=== PATIENT | female | born 1965 | race Caucasian/White ===

== ENCOUNTER 2019-10-05 00:11 | Emergency (ER) | payer BC ==
[2019-10-05] MEDS ORDERED: ONDANSETRON 4 MG/2 ML VIAL IVP STA (00:23)
[2019-10-05] MEDS ORDERED: SODIUM CHLORIDE 0.9% 1,000 ML IV STA (00:23)
[2019-10-05] MEDS ORDERED: HYDROmorphone 1 MG/ML 1 ML SYRINGE IVP STA (00:23)
[2019-10-05 00:43] LABS: Basophils # (A) 0.1 k/uL (0-0.2); Basophils % (A) 0 %; Eosinophils # (A) 0.3 k/uL (0-0.7); Eosinophils % (A) 2 %; HCT 47.9 % (34.0-46.0); HGB 15.4 gm/dL (11.4-16.0); Lymphocytes # (A) 5.1 k/uL (1.0-4.8); Lymphocytes % (A) 38 %; MCH 29.1 pg (25.0-35.0); MCHC 32.2 g/dL (31.0-37.0); MCV 90.4 fL (80.0-100.0); Monocytes # (A) 0.7 k/uL (0-1.0); Monocytes % (A) 5 %; Neutrophils # (A) 6.8 k/uL (1.3-7.7); Neutrophils % (A) 51 %; RDW 14.5 % (11.5-15.5); WBC 13.4 k/uL (3.8-10.6)
[2019-10-05 00:52] LABS: Albumin 4.6 g/dL (3.5-5.0); Calcium 10.3 mg/dL (8.4-10.2); Potassium 4.3 mmol/L (3.5-5.1); Total Bilirubin 0.2 mg/dL (0.2-1.3); Total Protein 7.4 g/dL (6.3-8.2)
[2019-10-05] MEDS ORDERED: SODIUM CHLORIDE 0.9% 1,000 ML IV SCH (01:15)
--- NOTE | 2019-10-05 01:20 | XR ---
EXAMINATION TYPE: XR KUB DATE OF EXAM: 10/05/2019 COMPARISON: 09/16/2014 HISTORY: Abdominal pain TECHNIQUE: 2 views upright FINDINGS: There is no sign of intestinal obstruction or pneumoperitoneum. Fecal pattern is normal. Th ere are multiple surgical coils over the abdomen. There is no evidence of a mass. There are no pathol ogic calcifications over the kidneys. Lung bases are clear. Bony structures are intact. IMPRESSION: Nonacute abdomen. No adverse change compared to old exam.
--- NOTE | 2019-10-05 01:23 | ED ---
Abdominal Pain HPI - General Chief Complaint: Abdominal Pain Stated Complaint: Abdominal Hernia Time Seen by Provider: 10/05/19 00:23 Source: patient Mode of arrival: wheelchair Limitations: no limitations - History of Present Illness Initial Comments: Hannah is a 54-year-old female with a history of extensive abdominal surgeries in the past including 71 for hernia repairs most recently was in 2014. Patient has a known incisional hernia which on previous imaging his contained: She's never had obstruction from this. Patient presents the ER today and acute abdominal pain with a firm bulge from her hernia vomiting and concern that she may have an obstruction. She was in her usual state of health throughout the day yesterday, this afternoon she developed pain in her abdomen noticed her hernia became very firm she's been vomiting unable tolerate any by mouth intake. This is never happened before with this hernia. - Related Data Home Medications Medication Instructions Recorded Confirmed Fluticasone Nasal Manson [Flonase 2 spray EA NOSTRIL DAILY 03/18/15 02/20/16 Nasal Manson] Latanoprost 1 drop LEFT EYE HS 03/18/15 02/20/16 Previous Rx's Medication Instructions Recorded Atorvastatin [Lipitor] 10 mg PO HS #30 tab 03/19/15 Dicyclomine HCl [Bentyl] 20 mg PO QID PRN #15 tab 02/20/16 Allergies Allergy/AdvReac Type Severity Reaction Status Date / Time erythromycin base Allergy Unknown Verified 10/05/19 00:20 [Erythromycin Base] iodine Allergy Unknown Verified 10/05/19 00:20 latex Allergy Unknown Verified 10/05/19 00:20 ALL NARCOTICS Allergy Unknown Uncoded 10/05/19 00:20 Review of Systems ROS Statement: Those systems with pertinent positive or pertinent negative responses have been documented in the HPI. ROS Other: All systems not noted in ROS Statement are negative. Past Medical History Past Medical History: Eye Disorder Additional Past Medical History / Comment(s): pressure in Left eye History of Any Multi-Drug Resistant Organisms: None Reported Past Surgical History: Appendectomy, Section, Hernia Repair, Tonsillectomy Additional Past Surgical History / Comment(s): 8 HERNIA SURGERY, NOSE SURGERY, ovary removed, Donated Left Kidney Past Psychological History: No Psychological Hx Reported Smoking Status: Former smoker Past Alcohol Use History: Rare Past Drug Use History: None Reported - Past Family History Mother Family Medical History: Myocardial Infarction ([place]) Father Family Medical History: Myocardial Infarction ([place]) General Exam - General Exam Comments Initial Comments: Physical Exam GENERAL: In acute distress, actively vomiting HENT: Normocephalic, Atraumatic. EYES: PERRL, EOMI PULMONARY: Unlabored respirations. No audible rales rhonchi or wheezing was noted. CARDIOVASCULAR: There is a regular rate and rhythm without any murmurs gallops or rubs. ABDOMEN: Pervious midline incision, palpable non-reducible hernia, no skin color changes noted Abdomen distended, tender, tympanic SKIN: Skin is clear with no lesions or rashes and otherwise unremarkable. : Deferred NEUROLOGIC: Patient is alert and oriented x3. Moving all extremities spontaneously MUSCULOSKELETAL: Normal extremities with adequate strength and full range of motion. No lower extremity swelling or edema. No calf tenderness. PSYCHIATRIC: Normal psychiatric evaluation. Limitations: no limitations Course Vital Signs 10/05/19 10/05/19 10/05/19 00:16 01:33 03:16 Temperature 97.5 F L 98.7 F Pulse Rate 102 H 94 78 Respiratory 20 20 18 Rate Blood Pressure 180/88 177/103 141/84 O2 Sat by Pulse 99 97 98 Oximetry Medical Decision Making - Medical Decision Making Patient was seen and evaluated immediately upon arrival to the emergency department patient was noted to be in acute distress Labs and imaging were ordered Patient care was discussed with surgeon sheet metal contractor Dr. alvarado who requests imaging and labs for further evaluation of likely incarcerated ventral hernia Labs with leukocytosis, mild lactic acidosis Patient with minimal improvement in pain with Dilaudid, however vomiting stopped after antiemetics Computed tomography scan confirms a very large ventral hernia This again was discussed with Dr. alvarado who is concerned that due to the patient's very complicated surgical history will require multiple surgeries, recommends transfer to tertiary care center Patient care was discussed with surgeon at [facility] who agrees this patient will likely require multiple surgeries possible abdominal wall reconstruction recommends transfer back to [facility] considering the patient is not profoundly acidotic only has a lactic of 2.6 does believe the patient is stable for transfer to [facility]. States that a few of them feels the patient needs emergent surgery the patient can be transferred to [facility] however the plan would be to open the patient's abdomen to resolve the obstruction and then transfer to [facility] likely with an open abdomen. Patient care was discussed with surgeon sheet metal contractor Dr. Lucio [facility]. CT images patient's history and my discussion with surgeons locally were discussed. At this time she does feel the patient is stable for transfer to their facility for plan or surgery. - Lab Data Result diagrams: 10/05/19 00:32 10/05/19 00:32 Lab Results 10/05/19 10/05/19 10/05/19 Range/Units 00:32 00:32 00:32 WBC 13.4 H (3.8-10.6) k/uL RBC 5.30 (3.80-5.40) m/uL Hgb 15.4 (11.4-16.0) gm/dL Hct 47.9 H (34.0-46.0) % MCV 90.4 (80.0-100.0) fL MCH 29.1 (25.0-35.0) pg MCHC 32.2 (31.0-37.0) g/dL RDW 14.5 (11.5-15.5) % Plt Count (150-450) k/uL Neutrophils % 51 % Lymphocytes % 38 % Monocytes % 5 % Eosinophils % 2 % Basophils % 0 % Neutrophils # 6.8 (1.3-7.7) k/uL Lymphocytes # 5.1 H (1.0-4.8) k/uL Monocytes # 0.7 (0-1.0) k/uL Eosinophils # 0.3 (0-0.7) k/uL Basophils # 0.1 (0-0.2) k/uL Manual Slide Review Performed Sodium 139 (137-145) mmol/L Potassium 4.3 (3.5-5.1) mmol/L Chloride 104 (98-107) mmol/L Carbon Dioxide 23 (22-30) mmol/L Anion Gap 12 mmol/L BUN 19 H (7-17) mg/dL Creatinine 0.90 (0.52-1.04) mg/dL Est GFR (CKD-EPI)AfAm 85 (>60 ml/min/1.73 sqM) Est GFR (CKD-EPI)NonAf 74 (>60 ml/min/1.73 sqM) Glucose 158 H (74-99) mg/dL Lactic Ac Sepsis Rflx Plasma Lactic Acid Neymar 2.6 H* (0.7-2.0) mmol/L Calcium 10.3 H (8.4-10.2) mg/dL Total Bilirubin 0.2 (0.2-1.3) mg/dL AST 42 H (14-36) U/L ALT 55 H (4-34) U/L Alkaline Phosphatase 115 (38-126) U/L Total Protein 7.4 (6.3-8.2) g/dL Albumin 4.6 (3.5-5.0) g/dL Amylase 48 (30-110) U/L Lipase 341 H (23-300) U/L Blood Type Blood Type Recheck Bld Type Recheck Status Antibody Screen Spec Expiration Date 10/05/19 10/05/19 Range/Units 00:32 01:11 WBC (3.8-10.6) k/uL RBC (3.80-5.40) m/uL Hgb (11.4-16.0) gm/dL Hct (34.0-46.0) % MCV (80.0-100.0) fL MCH (25.0-35.0) pg MCHC (31.0-37.0) g/dL RDW (11.5-15.5) % Plt Count (150-450) k/uL Neutrophils % % Lymphocytes % % Monocytes % % Eosinophils % % Basophils % % Neutrophils # (1.3-7.7) k/uL Lymphocytes # (1.0-4.8) k/uL Monocytes # (0-1.0) k/uL Eosinophils # (0-0.7) k/uL Basophils # (0-0.2) k/uL Manual Slide Review Sodium (137-145) mmol/L Potassium (3.5-5.1) mmol/L Chloride (98-107) mmol/L Carbon Dioxide (22-30) mmol/L Anion Gap mmol/L BUN (7-17) mg/dL Creatinine (0.52-1.04) mg/dL Est GFR (CKD-EPI)AfAm (>60 ml/min/1.73 sqM) Est GFR (CKD-EPI)NonAf (>60 ml/min/1.73 sqM) Glucose (74-99) mg/dL Lactic Ac Sepsis Rflx Y Plasma Lactic Acid Neymar (0.7-2.0) mmol/L Calcium (8.4-10.2) mg/dL Total Bilirubin (0.2-1.3) mg/dL AST (14-36) U/L ALT (4-34) U/L Alkaline Phosphatase (38-126) U/L Total Protein (6.3-8.2) g/dL Albumin (3.5-5.0) g/dL Amylase (30-110) U/L Lipase (23-300) U/L Blood Type O Positive Blood Type Recheck O Pos Bld Type Recheck Status No Antibody Screen NEGATIVE Spec Expiration Date 10/08/20192331 Critical Care Time Critical Care Time: Yes Total Critical Care Time: 45 Critical Care Time: Critical Care Time Critical care time was exclusive of separately billable procedures and treating other patients and teaching time. Critical care was necessary to treat or prevent imminent or life-threatening deterioration. Given the critical condition in which the patient arrived, the patient was immediately assessed by myself and the nurse, and cardiac monitoring initiated due to the potential for rapid decompensation of the patient's clinical condition. During the course of the patients stay, I spent a considerable amount of time at the bedside performing serial re-evaluations of the patient's hemodynamic and clinical status because of the recognized potential threat to life or limb in this condition. I then had a chance to review not only all of the available current laboratory and radiographic studies obtained today, but I also reviewed old records available to me at the time. Additionally, any ancillary information available including nurse wound care records were reviewed. Seque ntial vital signs were obtained. Disposition Clinical Impression: Incarcerated hernia of abdominal cavity Disposition: OTHER INSTITUTION NOT DEFINED Condition: Serious Referrals: Cedric Domínguez MD [Primary Care Provider] - 1-2 days - Out of Hospital Transfer - Req. Specs Out of Hospital Transfer - Requested Specifics: Other Emergency Center ([facility])
[2019-10-05] MEDS ORDERED: methylPREDNISolone SOD SUCCI 125 MG/2 ML VIAL IV STA (01:24)
[2019-10-05] MEDS ORDERED: diphenhydrAMINE 50 MG/ML 1 ML VIAL IVP STA (01:24)
[2019-10-05] MEDS ORDERED: FAMOTIDINE 20 MG/2 ML VIAL IV STA (01:24)
--- NOTE | 2019-10-05 02:16 | CT ---
EXAMINATION TYPE: CT abdomen pelvis w con DATE OF EXAM: 10/05/2019 COMPARISON: 02/20/2016 HISTORY: hernia CT DLP: 2528.4 mGycm Automated exposure control for dose reduction was used. CONTRAST: Performed with IV Contrast, patient injected with 80 mL of Isovue 300. Multiple axial sections were obtained from the diaphragm to the floor the pelvis with IV contrast. There is mild subsegmental atelectasis at the lung bases. There is no pericardial effusion. There is no pleural effusion. There is some fatty infiltration of the liver. Bile ducts are not dilated. There are clips from cholecystectomy. Spleen stomach pancreas appear normal. The bile ducts are not dilate d. There is moderate-sized ventral hernia in the right mid abdomen that contains transverse colon with s ome incarceration. There is a large midline ventral hernia with incarceration that contains multiple loops of small bowel. The bladder distends smoothly. Uterus is anteverted. There is no inguinal herni a. There is no free fluid in the pelvis. Left kidney is absent. Right kidneys show satisfactory contr ast opacification with no hydronephrosis. Right ureter is not dilated.Lumbar vertebra have normal ali gnment. Posterior elements are intact. Bony pelvis is intact. IMPRESSION: There are 2 anterior abdominal wall incarcerated ventral hernias. The small bowel is somewhat dilated within the larger inferior hernia and measures up to 3 cm. The small bowel is dilated up to 3 cm wit hin the inferior hernia and there is probably a partial mechanical obstruction. The more inferior her khalif significantly increased in size compared to old CT scan. There is fatty infiltration of the liver . There is some subsegmental atelectasis at the lung bases that is new compared to old exam.
[2019-10-05] MEDS ORDERED: PIPERACILLIN-TAZOBACTAM 3.375 GM in SODIUM CHLORIDE 0.9% 100 ML IVPB STA (02:40)
[2019-10-05] MEDS ORDERED: MORPHINE SULFATE 4 MG/ML SYRINGE IVP STA (02:40)
[2019-10-05 03:17] VITALS: BP 141/84; PULSE 78; RESP 18; TEMP 98.7
== END 2019-10-05 03:23 | disposition other institution (70) ==
LOC: EC 00:11
DX: K43.6 Other and unspecified ventral hernia with obstruction, without gangrene (principal); D72.829 Elevated white blood cell count, unspecified; E87.2 Acidosis; Z79.51 Long term (current) use of inhaled steroids; Z88.1 Allergy status to other antibiotic agents; Z91.040 Latex allergy status; Z91.048 Other nonmedicinal substance allergy status; Z88.5 Allergy status to narcotic agent; Z90.89 Acquired absence of other organs; Z87.891 Personal history of nicotine dependence
CPT/HCPCS: 99291; 96374; 96375 ×6; 96361 ×3; 36415; 86900; 86901; 80053; 82150; 83605; 83690; 85025; 86850; 74018; 74177; J2543; J2270; J1200; J2930; J2405; J1170; Q9967

== ENCOUNTER → 2019-11-06 | Outpatient (CLI) | payer BC ==
--- NOTE | 2019-11-06 10:09 | US ---
EXAMINATION TYPE: US liver DATE OF EXAM: 11/06/2019 COMPARISON: CT October 05, 2019, US 2014 CLINICAL HISTORY: R94.5 ABN LIVER FUNCTIONS,R68.89 ABN CLINICAL FINDINGS. Abnormal liver function trinity ts, patient states she has a 0.8cm liver lesion seen at [facility], not seen on recent CT here. EXAM MEASUREMENTS: Liver Length: 20.0 cm Gallbladder Wall: surgically absent CBD: 0.5 cm Right Kidney: 12.4 x 5.5 x 6.2 cm Pancreas: visualized portions wnl, limited by overlying midline bowel gas Liver: enlarged, heterogeneous, increased echogenicity, lesion not seen on today's exam. Gallbladder: surgically absent Evidence for sonographic Moran's sign: no CBD: visualized portions wnl, limited by overlying bowel gas Right Kidney: wnl Persistent hepatomegaly and marked fatty infiltration of liver. Suboptimal evaluation for masses due to above. No suspicious mass identified on images saved. Gallbladder noted surgically absent. IMPRESSION: Hepatomegaly with marked fatty infiltration of liver redemonstrated. In review of recent CT patient has a 9 to 10 mm hyperdense lesion posterior segment right hepatic lobe image 27 series 20 [address] clearly identified on CT studies from 2010, 2014, and 2016. Follow-up liver protocol contrast-e nhanced CT in 6-12 months time is advised to reassess.
== END | disposition home or self-care (01) ==
LOC: RADUSWWP 09:25
PROVIDERS: ATTEND Internal Medicine
DX: K76.0 Fatty (change of) liver, not elsewhere classified (principal); R16.0 Hepatomegaly, not elsewhere classified; Z91.048 Other nonmedicinal substance allergy status
CPT/HCPCS: 76705

== ENCOUNTER → 2019-12-09 | Outpatient (CLI) | payer BC ==
--- NOTE | 2019-12-09 18:18 | XR ---
EXAMINATION TYPE: XR shoulder complete LT DATE OF EXAM: 12/09/2019 CLINICAL HISTORY: Pain from fall 2 weeks ago TECHNIQUE: Three views of the left shoulder are obtained. COMPARISON: None. FINDINGS: There is no acute fracture/dislocation evident in the left shoulder. The acromioclavicula r and glenohumeral joint spaces appear within normal limits. The visualized ribs are intact and unre markable. IMPRESSION: There is no acute fracture or dislocation in the left shoulder.
== END | disposition home or self-care (01) ==
LOC: RADXRMAIN 14:23
PROVIDERS: ATTEND Nurse Practitioner Adult Health
DX: M25.512 Pain in left shoulder (principal)

== ENCOUNTER → 2020-01-29 | Outpatient (CLI) | payer BC | END | disposition home or self-care (01) | LOC: RADFLMAIN 12:52 | PROVIDERS: ATTEND Nurse Practitioner Adult Health | DX: Z53.9 Procedure and treatment not carried out, unspecified reason (principal) ==

== ENCOUNTER → 2020-01-30 | Outpatient (CLI) | payer BC ==
--- NOTE | 2020-01-30 16:41 | FL ---
EXAMINATION TYPE: FL arthrogram shoulder LT fluoroscopic-guided arthrogram injection. DATE OF EXAM: 01/30/2020 HISTORY: Left shoulder pain and limited movement PROCEDURES: 1. Left shoulder fluoroscopy. 2. Left shoulder arthrogram. Patient has history of iodine allergy and 13 hour complete prep was performed prior to procedure. TECHNIQUE: The procedure, risks, and alternatives, were discussed with the patient. Informed consent was obtaine d. Imaging guidance was utilized to select the precise skin entry point just prior to the procedure. The left shoulder was prepped and draped in the usual sterile fashion and local 1% lidocaine anesthes ia was instilled. Under fluoroscopic guidance, a 22 gauge spinal needle was introduced into the left glenohumeral joint. Appropriate needle tip position was confirmed after a small amount of contrast i njection. Approximately 10 ml of a mixture of Isovue iodinated contrast and Gadavist gadolinium was injected in to the glenohumeral joint. The needle was then removed. The patient tolerated the procedure well. There was no immediate complication. After the procedure, the patient's condition was unchanged. No estimated blood loss. Total fluoroscopy time 54 seconds IMPRESSION: Technically successful left shoulder arthrogram injection for MRI. No immediate complication.
--- NOTE | 2020-02-01 18:22 | MR ---
EXAMINATION TYPE: MR shoulder LT w con DATE OF EXAM: 01/30/2020 COMPARISON: None HISTORY: L shoulder pain Technique: Multiplanar, multiecho imaging on a 3.0 Ana magnet is performed through the shoulder. Ex amination is post arthrogram. Findings: Long head of the biceps tendon is within the bicipital groove. Fluid cannot be well assessed on this examination given post arthrogram status. Glenoid labrum as vi sualized appears intact. Rotator cuff tendons are evaluated. There is fluid within the subacromial bursa and within the subde ltoid bursa. Large fluid collection is anterior to the humeral head. There appears to be a perforati on at the distal supraspinatus tendon. This is along the anterior portion near the communication with the subscapularis tendon. Muscle signal the subscapularis and supraspinatus as well as infraspinatus and teres minor appear normal. No fatty infiltration is evident. The acromioclavicular junction is hypertrophied which can contribute to impingement syndrome. IMPRESSIONS: 1. Findings suggestive for a perforation near the confluence of the subscapularis and supraspinatus t endon anteriorly.
== END | disposition home or self-care (01) ==
LOC: RADFLMAIN 13:02
PROVIDERS: ATTEND Nurse Practitioner Adult Health
DX: M25.512 Pain in left shoulder (principal)
CPT/HCPCS: 23350; 73040; 73222; J2001; A9585

== ENCOUNTER → 2020-03-10 | Outpatient (CLI) | payer BC ==
--- NOTE | 2020-03-10 21:42 | CT ---
EXAMINATION TYPE: CT abdomen wo con DATE OF EXAM: 03/10/2020 HISTORY: Abdominal pain in particular epigastric pain, vomiting, diarrhea x3 wks. hx hernia, bowel ob struction, agnes, appy CT DLP: 930.10 mGycm. Automated Exposure Control for Dose Reduction was Utilized. TECHNIQUE: CT scan of the abdomen is performed without oral or IV contrast. COMPARISON: Most recent CT October 05, 2019 FINDINGS: Within the limitations of a non-contrast study, the following observations are made. LUNG BASES: No significant abnormality is appreciated. LIVER/GB: Persistent mild hepatomegaly with marked fatty infiltration of liver. Cholecystectomy clips are redemonstrated. PANCREAS: No significant abnormality is seen. SPLEEN: Stable small splenule posterior inferior aspect axial image 37. ADRENALS: No significant abnormality is seen. KIDNEYS: Left kidney is not seen similar to prior. 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 There is contrast debris level in stomach with additional fluid overlying contrast and nondependent air. Mi ld to moderate gastric prominence. Correlate for possible underlying gastroparesis. Nondistended duod enal sweep. Fourth portion of duodenum does not ascend to the level of the gastric antrum. Slightly p rominent jejunal loops in the anterior upper to mid abdomen with [id number] concentric wall thi ckening. Fecal material seen in nondistended colon. LYMPH NODES: No new greater than 1cm abdominal lymph nodes are appreciated. OSSEOUS STRUCTURES: Slight scoliotic curvature on the coronal images redemonstrated. Facet arthropath y lower lumbar levels. OTHER: Persistent coils from prior ventral wall hernia repair surgery. Interval improvement in hernia defect with minimal overlying vertical skin scar. There is persistent eventration anterior to mid ab domen with small right-sided hernia defect axial image 47-containing portion of bowel. No bowel obstr uction. Eventration and hernia defect more prominent with increased inferior extension along the inci cata noted. IMPRESSION: Eventration and recurrent incisional hernia despite interval surgery containing nonobstru ctive bowel loops..
== END | disposition home or self-care (01) ==
LOC: RADCTMAIN 18:12
PROVIDERS: ATTEND Nurse Practitioner Adult Health
DX: K43.2 Incisional hernia without obstruction or gangrene (principal); Z91.048 Other nonmedicinal substance allergy status
CPT/HCPCS: 74150

== ENCOUNTER → 2020-03-16 | Outpatient (CLI) | payer BC ==
[2020-03-16 10:43] LABS: Basophils # (A) 0.1 k/uL (0-0.2); Basophils % (A) 1 %; Eosinophils # (A) 0.2 k/uL (0-0.7); Eosinophils % (A) 3 %; HCT 45.2 % (34.0-46.0); HGB 14.3 gm/dL (11.4-16.0); Lymphocytes # (A) 2.6 k/uL (1.0-4.8); Lymphocytes % (A) 29 %; MCH 27.2 pg (25.0-35.0); MCHC 31.7 g/dL (31.0-37.0); MCV 85.9 fL (80.0-100.0); Mean Platelet Volume 9.6; Monocytes % (A) 12 %; Neutrophils # (A) 4.8 k/uL (1.3-7.7); Neutrophils % (A) 54 %; RBC 5.26 m/uL (3.80-5.40); RDW 14.6 % (11.5-15.5); WBC 8.9 k/uL (3.8-10.6)
[2020-03-16 10:46] LABS: Potassium 4.4 mmol/L (3.5-5.1)
== END | disposition home or self-care (01) ==
LOC: LABPAT 08:48
PROVIDERS: ATTEND Orthopaedic Surgery
DX: Z01.812 Encounter for preprocedural laboratory examination (principal); M75.42 Impingement syndrome of left shoulder
CPT/HCPCS: 80048; 85025; 93005

== ENCOUNTER → 2020-03-16 | Outpatient (CLI) | payer BC ==
[2020-03-16 17:15] LABS: Hemoglobin A1C 7.6 % (4.0-6.0)
== END | disposition home or self-care (01) ==
LOC: LABWHC1 08:50
PROVIDERS: ATTEND Nurse Practitioner Adult Health
DX: E11.8 Type 2 diabetes mellitus with unspecified complications (principal)
CPT/HCPCS: 36415; 83036

== ENCOUNTER 2020-04-15 05:52 | Day surgery (SDC) | payer BC ==
[2020-04-07 12:58] VITALS: BMI 34.0
--- NOTE | 2020-04-14 18:28 | HP ---
HISTORY AND PHYSICAL DATE OF SURGERY: 04/15/2020 Hannah Rader is a 54-year-old patient seen with progressive left shoulder pain. We discussed options for treatment. She elected to proceed with arthroscopy. Consent regarding the procedure was obtained. PAST MEDICAL HISTORY: Hypertension, mni-tqznhne-ynlzgrlgh diabetes, asthma. PAST SURGICAL HISTORY: Appendectomy, section, cholecystectomy, herniorrhaphy, tonsillectomy. DAILY MEDICATIONS: Cymbalta, Flonase, losartan, Singulair. ALLERGIES: NARCOTICS and ERYTHROMYCIN. SOCIAL HISTORY: She denies tobacco use. PHYSICAL EVALUATION OF THE LEFT SHOULDER: Flexion 90 degrees, abduction 60 degrees. External rotation is 25 degrees with some weakness. There is tenderness along the anterolateral acromion and rotator cuff insertion site. Impingement is positive at 70 degrees. Drop-arm sign is positive. Distal neurovascular exam is intact. RADIOGRAPHS: Left shoulder radiographs revealed a type 2 anterior acromion as well as evidence for acromioclavicular joint osteoarthritis. An MRI of the left shoulder revealed a rotator cuff tear, acromioclavicular joint osteoarthritis and impingement. IMPRESSION: 1. Left shoulder impingement with rotator cuff tear. 2. Left shoulder acromioclavicular joint osteoarthritis. 3. Hypertension. PLAN: Left shoulder arthroscopy, subacromial decompression, arthroscopic rotator cuff repair, Shaunna procedure and debridement. MMODL / IJN: [id number] /
[2020-04-15] MEDS ORDERED: MIDAZOLAM 2 MG/2 ML VIAL IV PRN (06:02)
[2020-04-15] MEDS ORDERED: DEXAMETHASONE SOD PHOSPHATE 4 MG/ML 1 ML VIAL IV ONE (06:02)
[2020-04-15] MEDS ORDERED: LIDOCAINE 1% (10MG/ML) FOR IV START INTRADERMA PRN (06:02)
[2020-04-15] MEDS ORDERED: ONDANSETRON 4 MG/2 ML VIAL IVP ONE (06:02)
[2020-04-15] MEDS ORDERED: LACTATED RINGERS 1,000 ML IV SCH (06:02)
[2020-04-15] MEDS ORDERED: HYDROmorphone 0.5 MG/0.5 ML SYRINGE IVP PRN (07:00)
[2020-04-15] MEDS ORDERED: MIDAZOLAM 2 MG/2 ML VIAL IV ONE (07:02)
[2020-04-15 07:20] LABS: Glucose,Whole Blood 113 mg/dL (75-99)
[2020-04-15] MEDS ORDERED: LIDOCAINE 1% INJ 10MG/ML (20 ML MDV) ONE (07:22)
[2020-04-15] MEDS ORDERED: PHENYLEPHRINE 10 MG/ML VIAL ONE (07:22)
[2020-04-15] MEDS ORDERED: DEXAMETHASONE SOD PHOSPHATE 4 MG/ML 1 ML VIAL ONE (07:22)
[2020-04-15] MEDS ORDERED: PROPOFOL 10 MG/ML 20 ML VIAL IV ONE (07:22)
[2020-04-15] MEDS ORDERED: SUCCINYLCHOLINE CHLORIDE 100 MG/5 ML SYR IV ONE (07:22)
[2020-04-15] MEDS ORDERED: fentaNYL (PF) 50 MCG/ML 2 ML AMP ONE (07:22)
[2020-04-15] MEDS ORDERED: ROPIVACAINE 5 MG/ML 30 ML VIAL ONE (07:22)
--- NOTE | 2020-04-15 07:55 | P.ANPRN ---
Procedure Note - Anesthesia - Nerve Block Performed Left Interscalene Single Time Out Performed: Yes Date of Procedure: 04/15/20 Procedure Start Time: 07:02 Procedure Stop Time: 07:10 Location of Patient: PreOp Indication: Acute Post-Operative Pain, Requested by Surgeon Sedation Type: Sedate with meaningful contact maintained Preparation: Sterile Prep, Sterile Dressing Position: Sitting Catheter: None Needle Types: Facet Needle Gauge: 20, 21 Ultrasound used to visualize needle placement: Yes Ultrasound used to observe medication spread: Yes Injectate: 0.5% Ropivacaine (see comment for volume) (20 ml + decadron 4 mg) Blood Aspirated: No Pain Paresthesia on Injection Noted: No Resistance on Injection: Normal Image Stored and Saved: Yes Events: Uneventful and Well Tolerated
[2020-04-15] MEDS ORDERED: LACTATED RINGERS 1,000 ML IV ONE (08:21)
--- NOTE | 2020-04-15 09:00 | P.OP ---
Date of Procedure: 04/15/20 Preoperative Diagnosis: Left shoulder impingement Postoperative Diagnosis: 1. Left shoulder rotator cuff tear 2. Left shoulder impingement 3. Left shoulder acromioclavicular joint osteoarthritis 4. Left shoulder partial long head biceps tendon tear Procedure(s) Performed: 1. Left shoulder arthroscopic rotator cuff repair 2. Left shoulder arthroscopic subacromial decompression 3. Left shoulder arthroscopic Shaunna procedure 4. Left shoulder arthroscopic biceps tenotomy Implants: 25.5 Arthrex swivel lock anchors Anesthesia: GETA, regional (Interscalene block) Surgeon: Pavel Palmer Crm Coordinator #1: Peter Ellington Estimated Blood Loss (ml): 7 Pathology: none sent Condition: stable Disposition: PACU Indications for Procedure: 54-year-old patient seen with progressive left shoulder pain. After treatment options were discussed, she elected to proceed with arthroscopy. Operative Findings: See description of procedure Description of Procedure: Patient underwent an interscalene block by department of anesthesia. The patient was then taken to the operative suite. The patient underwent a general anesthetic by the department of anesthesia. The patient was placed into a lateral position and secured. There was appropriate padding of the bony prominence. Left shoulder was then prepped and draped in normal sterile orthopedic fashion. We placed the extremity in 10 pounds of longitudinal traction. A posterior incision was now made for a posterior working portal site. The trocar and cannula were inserted into the glenohumeral joint. Arthroscopy was initiated. Spinal needle was now inserted anteriorly, to ascertain the anterior working portal site. An incision was now made in that area, a trocar was inserted followed by a probe. There was some partial tearing and hyperemia long head biceps tendon. There were grade 1 chondromalacia changes involving the humeral head. The labrum was stable. I could visualize a rotator cuff tear from the glenohumeral joint. I performed an arthroscopic biceps tenotomy. I again probe the labrum and it was found to be stable. At this point instruments removed from glenohumeral joint. Utilizing the posterior working portal site, the trocar and cannula were inserted into the subacromial space. Arthroscopy initiated. I made an incision 2 fingerbreadths lateral to the acromion. I introduced my trocar followed by my ArthroCare ablator. I now began ablating thick subacromial bursal tissue, which exposed the undersurface of the anterior acromion. There was diminished subacromial space. There was a very prominent anterior acromion. A motorized bur was introduced and a subacromial decompression was performed. I also excised some osteophytes off the inferior aspect of the distal clavicle. The AC joint was visualized and noted to be fairly arthritic. The motorized bur was introduced in the anterior portal site and a Shaunna procedure was performed without difficulty, decompressing the AC joint nicely. I turned my attention to the rotator cuff. There was a 1.52 centimeter tear along the anterior aspect of the distal supraspinatus. I debrided the margins getting down to stable tendon tissue. I abraded the footprint with a motorized bur. I passed 4 everted mattress sutures through good bites of rotator cuff tendon. I now punched 2 holes in the footprint area for insertion of anchors. The 4 anterior suture limbs were passed through the eyelet of a 5.5 Arthrex swivel lock anchor. The eyelet was placed into the pre-punched hole. The sutures were tensioned by Ricardo ZHOU Whipple the anchor position and Ricardo ZHOU deployed the ankle with good fixation noted. The same was conducted for the 4 hand straightener suture limbs. All residual suture limbs were now clipped. We had good compression of the tendon along the entire footprint. I injected 1 mL Renyte intra-articular. Instruments now removed from the portal sites. All portal sites were approximated with nylon suture. Sterile dressings were applied followed by a shoulder sling. Peter ZHOU assisted in this complex case. The patient was awakened, transferred to a bed, and taken to recovery in stable condition.
[2020-04-15 09:03] VITALS: TEMP 97.4
[2020-04-15 09:14] VITALS: RESP 16
[2020-04-15 09:58] VITALS: BP 113/72; PULSE 80
== END 2020-04-15 10:56 | disposition home or self-care (01) ==
LOC: OR 05:52
PROVIDERS: ATTEND Orthopaedic Surgery
DX: M75.102 Unspecified rotator cuff tear or rupture of left shoulder, not specified as traumatic (principal); M19.012 Primary osteoarthritis, left shoulder; S46.112A Strain of muscle, fascia and tendon of long head of biceps, left arm, initial encounter; X58.XXXA Exposure to other specified factors, initial encounter; M25.712 Osteophyte, left shoulder; M94.212 Chondromalacia, left shoulder; I10 Essential (primary) hypertension; E11.9 Type 2 diabetes mellitus without complications; J45.909 Unspecified asthma, uncomplicated; Z90.49 Acquired absence of other specified parts of digestive tract; Z98.890 Other specified postprocedural states; Z98.891 History of uterine scar from previous surgery; Z90.89 Acquired absence of other organs; Z79.1 Long term (current) use of non-steroidal anti-inflammatories (NSAID); Z79.899 Other long term (current) drug therapy; Z88.1 Allergy status to other antibiotic agents; Z88.5 Allergy status to narcotic agent
CPT/HCPCS: 29826; 29827; 29824; 64415; 76942; C1713; Q4212; J2250; J1100; J2370; J0690; J2405; J2001; J3010; J2795; J0330; J2704; 64448

== ENCOUNTER 2020-07-08 17:44 | Emergency (ER) | payer BC ==
[2020-07-08] MEDS ORDERED: ONDANSETRON 4 MG/2 ML VIAL IVP STA (19:19)
[2020-07-08] MEDS ORDERED: SODIUM CHLORIDE 0.9% 1,000 ML IV STA (19:19)
[2020-07-08] MEDS ORDERED: FAMOTIDINE 20 MG/2 ML VIAL IV STA (19:20)
[2020-07-08 19:34] LABS: Basophils % (A) 0 %; Eosinophils % (A) 0 %; HGB 15.9 gm/dL (11.4-16.0); Lymphocytes # (A) 1.3 k/uL (1.0-4.8); Lymphocytes % (A) 23 %; MCH 28.2 pg (25.0-35.0); MCHC 33.8 g/dL (31.0-37.0); MCV 83.3 fL (80.0-100.0); Mean Platelet Volume 10.9; Monocytes # (A) 0.4 k/uL (0-1.0); Monocytes % (A) 6 %; Neutrophils % (A) 69 %; Platelet Count 135 k/uL (150-450); RBC 5.64 m/uL (3.80-5.40); RDW 13.5 % (11.5-15.5); WBC 5.7 k/uL (3.8-10.6)
--- NOTE | 2020-07-08 19:50 | ED ---
Nausea/Vomiting/Diarrhea HPI - General Chief complaint: Nausea/Vomiting/Diarrhea Stated complaint: dehydration Time Seen by Provider: 07/08/20 18:58 Source: patient Mode of arrival: ambulatory Limitations: no limitations - History of Present Illness Initial comments: 55-year-old female patient presents to the emergency department today for evaluation of nausea, vomiting, diarrhea. States symptoms started 2 days ago. States she does get short of breath when going upstairs. Denies any cough or congestion. Denies loss of taste or smell. Denies any rash. Denies any known fever or chills. States that several coworkers out sick with COVID-19. She was tested yesterday but does not have results yet. Denies use of any medications for her symptoms. Patient denies any recent rash, chest pain, abdominal pain, back pain, numbness, tingling, dizziness, weakness, hematuria, dysuria, urinary urgency, urinary frequency, headache, visual changes, or any other complaints. - Related Data Home Medications Medication Instructions Recorded Confirmed Fluticasone Nasal [place] [Flonase 1 spray EA NOSTRIL DAILY 03/18/15 04/15/20 Nasal [place]] Albuterol Inhaler [Ventolin Hfa 1 puff INHALATION DIRECTED PRN 04/07/20 04/15/20 Inhaler] Cholecalciferol [Vitamin D3 (25 3,000 unit PO DAILY 04/07/20 04/15/20 Mcg = 1000 Iu)] Elderberry (Unknown Dose) 1 tab PO DAILY 04/07/20 04/15/20 Folic Acid (Unknown Dose) 1 tab PO DAILY 04/07/20 04/15/20 Loratadine-Pseudoeph 10-240 mg 1 tab PO DAILY 04/07/20 04/15/20 [Claritin-D 24 Hour] Losartan (Unknown Dose) 1 tab PO DAILY 04/07/20 04/15/20 Melatonin 5 mg PO HS PRN 04/07/20 04/15/20 Metoclopramide [Reglan] 5 mg PO QID 04/07/20 04/15/20 Montelukast (Unknown Dose) 1 tab PO HS 04/07/20 04/15/20 Multivit-Min/FA/Lycopen/Lutein 1 each PO DAILY 04/07/20 04/15/20 [Centrum Silver Tablet] Pantoprazole [Protonix] 40 mg PO DAILY PRN 04/07/20 04/15/20 diphenhydrAMINE [Benadryl] 25 mg PO HS PRN 04/07/20 04/15/20 metFORMIN HCL [Glucophage] 500 mg PO DAILY 04/07/20 04/15/20 Previous Rx's Medication Instructions Recorded Hydrocodone/Acetaminophen [[place] 1 each PO Q6HR PRN #28 tab 04/15/20 5-325] Ondansetron [Zofran ODT] 4 mg PO Q8HR PRN #20 tab 07/08/20 Allergies Allergy/AdvReac Type Severity Reaction Status Date / Time iodine Allergy Unknown Rash/Hives Verified 07/08/20 17:50 latex Allergy Unknown Rash/Hives Verified 07/08/20 17:50 shellfish derived [Shellfish] Allergy Unknown Rash/Hives Verified 07/08/20 17:50 erythromycin base Allergy Abdominal Verified 07/08/20 17:50 [Erythromycin Base] Pain, Nausea ALL NARCOTICS AdvReac Severe Severe Uncoded 07/08/20 17:50 Migraines that last for weeks. Review of Systems ROS Statement: Those systems with pertinent positive or pertinent negative responses have been documented in the HPI. ROS Other: All systems not noted in ROS Statement are negative. Past Medical History Past Medical History: Diabetes Mellitus, Eye Disorder Additional Past Medical History / Comment(s): pressure in Left eye History of Any Multi-Drug Resistant Organisms: None Reported Past Surgical History: Appendectomy, Section, Hernia Repair, Tonsillectomy Additional Past Surgical History / Comment(s): 7 HERNIA SURGERY, NOSE SURGERY, ovary removed, Donated Left Kidney Past Anesthesia/Blood Transfusion Reactions: No Reported Reaction Past Psychological History: No Psychological Hx Reported Smoking Status: Former smoker Past Alcohol Use History: Rare Past Drug Use History: None Reported - Past Family History Mother Family Medical History: Myocardial Infarction ([place]) Father Family Medical History: Deep Vein Thrombosis (DVT), Myocardial Infarction ([place]) General Exam Limitations: no limitations General appearance: alert, in no apparent distress, other (This is a well- developed, well-nourished adult female patient in no acute distress. Vital signs upon presentation are temperature 97.9F, pulse 81, respirations 18, blood pressure 162/89, pulse ox 94% on room air.) Eye exam: Present: normal appearance, PERRL, EOMI. Absent: scleral icterus, conjunctival injection, periorbital swelling ENT exam: Present: normal exam, normal oropharynx, mucous membranes moist Respiratory exam: Present: normal lung sounds bilaterally. Absent: respiratory distress, wheezes, rales, rhonchi, stridor Cardiovascular Exam: Present: regular rate, normal rhythm, normal heart sounds. Absent: systolic murmur, diastolic murmur, rubs, gallop, clicks GI/Abdominal exam: Present: soft, normal bowel sounds. Absent: distended, tenderness, guarding, rebound, rigid Neurological exam: Present: alert, oriented X3, CN II-XII intact Psychiatric exam: Present: normal affect, normal mood Skin exam: Present: warm, dry, intact, normal color. Absent: rash Course Vital Signs 07/08/20 07/08/20 07/08/20 17:48 19:36 20:34 Temperature 97.9 F 98.7 F Pulse Rate 81 76 77 Respiratory 18 16 18 Rate Blood Pressure 162/89 117/74 116/69 O2 Sat by Pulse 94 L 96 96 Oximetry Medical Decision Making - Medical Decision Making 55-year-old female patient presented to the emergency department today for evaluation of nausea, vomiting, fatigue. She did test positive for COVID-19. Labs reviewed and did reveal BUN 20, creatinine 1.21, mildly elevated AST ALT. Chest x-ray did show bibasilar infiltrates. Vital signs within normal ranges, oxygen saturation between 95 and 96% on room air, she does not appear short of breath. Given her history she does qualify for bamlanivimab infusion. We did discuss risks versus benefits, she agrees to receive this medication. She'll be discharged to follow-up with her primary care physician for recheck in 1-2 days. She is given prescription for Zofran. Instructed to start with clear liquid diet and advance as tolerated. Return parameters were discussed in detail. She verbalizes understanding and agrees with this plan. Case discussed with my attending Dr. Rousseau. - Lab Data Result diagrams: 07/08/20 19:19 07/08/20 19:19 Lab Results 07/08/20 07/08/20 07/08/20 Range/Units 18:56 19:19 19:19 WBC 5.7 (3.8-10.6) k/uL RBC 5.64 H (3.80-5.40) m/uL Hgb 15.9 (11.4-16.0) gm/dL Hct 47.0 H (34.0-46.0) % MCV 83.3 (80.0-100.0) fL MCH 28.2 (25.0-35.0) pg MCHC 33.8 (31.0-37.0) g/dL RDW 13.5 (11.5-15.5) % Plt Count 135 L (150-450) k/uL MPV 10.9 Neutrophils % 69 % Lymphocytes % 23 % Monocytes % 6 % Eosinophils % 0 % Basophils % 0 % Neutrophils # 4.0 (1.3-7.7) k/uL Lymphocytes # 1.3 (1.0-4.8) k/uL Monocytes # 0.4 (0-1.0) k/uL Eosinophils # 0.0 (0-0.7) k/uL Basophils # 0.0 (0-0.2) k/uL Sodium 140 (137-145) mmol/L Potassium 4.3 (3.5-5.1) mmol/L Chloride 102 (98-107) mmol/L Carbon Dioxide 25 (22-30) mmol/L Anion Gap 13 mmol/L BUN 20 H (7-17) mg/dL Creatinine 1.21 H (0.52-1.04) mg/dL Est GFR (CKD-EPI)AfAm 59 (>60 ml/min/1.73 sqM) Est GFR (CKD-EPI)NonAf 51 (>60 ml/min/1.73 sqM) Glucose 134 H (74-99) mg/dL Calcium 9.6 (8.4-10.2) mg/dL Total Bilirubin 0.5 (0.2-1.3) mg/dL AST 47 H (14-36) U/L ALT 38 H (4-34) U/L Alkaline Phosphatase 94 (38-126) U/L Total Protein 7.1 (6.3-8.2) g/dL Albumin 4.2 (3.5-5.0) g/dL Lipase 166 (23-300) U/L Coronavirus (PCR) Detected A (Not Detectd) - Radiology Data Radiology results: report reviewed, image reviewed One view x-ray of the chest is obtained. Report reviewed in its entirety. Impression by Dr. Grimes shows bibasilar infiltrates per Disposition Clinical Impression: COVID-19, Pneumonia due to COVID-19 virus Disposition: HOME SELF-CARE Condition: Good Instructions (If sedation given, give patient instructions): Coronavirus Disease 2019 (COVID-19), Viral Pneumonia (ED) Additional Instructions: Increase fluids. Cervical liquid diet and advance as tolerated. Use Zofran as needed for nausea. Follow-up with your primary care physician for recheck in 1- 2 days. Quarantine and inform those that you have been in contact with of your diagnosis. Return to the emergency department for any new, worsening, or concerning symptoms. Prescriptions: Ondansetron [Zofran ODT] 4 mg PO Q8HR PRN #20 tab PRN Reason: Nausea Is patient prescribed a controlled substance at d/c from ED?: No Referrals: Sunshine Treadwell [facility] [Primary Care Provider] - 1-2 days Time of Disposition: 22:00
[2020-07-08 19:53] LABS: Albumin 4.2 g/dL (3.5-5.0); Calcium 9.6 mg/dL (8.4-10.2); Potassium 4.3 mmol/L (3.5-5.1); Total Bilirubin 0.5 mg/dL (0.2-1.3); Total Protein 7.1 g/dL (6.3-8.2)
--- NOTE | 2020-07-08 20:13 | XR ---
EXAMINATION TYPE: XR chest 1V DATE OF EXAM: 07/08/2020 COMPARISON: 03/17/2015. HISTORY: Shortness of breath. TECHNIQUE: Single frontal view of the chest is obtained. FINDINGS: There are mild to moderate right greater than left bibasilar opacities. No pleural effusio n, or pneumothorax seen. The cardiac silhouette size is within normal limits. The osseous structur es are intact. IMPRESSION: Bibasilar infiltrates.
[2020-07-08] MEDS ORDERED: BAMLANIVIMAB (EUA) 700 MG, ETESEVIMAB (EUA) 1,400 MG in SODIUM CHLORIDE 0.9% 50 ML IVPB ONE (20:30)
[2020-07-08 20:36] VITALS: TEMP 98.7
[2020-07-08] MEDS ORDERED: SODIUM CHLORIDE 0.9% 50 ML IVPB ONE (21:00)
[2020-07-08] MEDS ORDERED: ONDANSETRON 4 MG ODT STARTER PACK 2 TAB BTL PO STA (22:00)
[2020-07-08 22:02] VITALS: BP 119/76; PULSE 57; RESP 16
== END 2020-07-08 22:09 | disposition home or self-care (01) ==
LOC: EC 17:44
DX: U07.1 COVID-19 (principal); J12.82 Pneumonia due to coronavirus disease 2019; E11.9 Type 2 diabetes mellitus without complications; Z87.891 Personal history of nicotine dependence
CPT/HCPCS: 80053; 83690; 85025; 87635; 71045; 99285; 96365; 96375; 96361; J2405; S0119; Q0245

== ENCOUNTER → 2020-08-31 | Outpatient (CLI) | payer BC ==
--- NOTE | 2020-08-31 13:41 | US ---
EXAMINATION TYPE: US transvaginal DATE OF EXAM: 08/31/2020 COMPARISON: NONE CLINICAL HISTORY: N95.0 POST MENOPAUSAL BLEEDING. No bleeding now, patient did have 10 days of bleedi ng/spotting, would stop and then start spotting again, right oophorectomy, , , tubal lig ation TECHNIQUE: TV. Transvaginal sonographic images Date of LMP: 5 yrs ago EXAM MEASUREMENTS: Uterus: 8.0 x 3.6 x 3.7 cm Endometrial Stripe: 7.5 mm, which is thickened Right Ovary: Surgically absent Left Ovary: 2.3 x 2.7 x 1.6 cm 1. Uterus: Anteverted wnl 2. Endometrium: slightly thickened 3. Right Ovary: Surgically absent 4. Left Ovary: wnl 5. Bilateral Adnexa: wnl 6. Posterior cul-de-sac: wnl IMPRESSION: 1. 7.5 mm thickened endometrial stripe. In a postmenopausal female, differential diagnosis includes endometrial cancer, endometrial hyperplasia, or endometrial polyp. Gynecologic evaluation is recommen ded. 2. Right oophorectomy.
--- NOTE | 2020-09-01 10:37 | MM ---
Reason for exam: screening (asymptomatic). Last mammogram was performed 7 years and 1 month ago. History: Patient is postmenopausal. Family history of breast cancer in maternal aunt at age 50 and breast cancer in paternal aunt at age 50. Physical Findings: A clinical breast exam by your physician is recommended on an annual basis and results should be correlated with mammographic findings. MG Screening Mammo w CAD Bilateral CC and MLO view(s) were taken. Prior study comparison: August 06, 2013, bilateral MG screening mammo w CAD. There are scattered fibroglandular densities. No significant changes when compared with prior studies. ASSESSMENT: Benign, BI-RAD 2 RECOMMENDATION: Routine screening mammogram of both breasts in 1 year.
== END | disposition home or self-care (01) ==
LOC: RADUSWWP 07:30
PROVIDERS: ATTEND Internal Medicine
DX: Z12.31 Encounter for screening mammogram for malignant neoplasm of breast (principal); R93.89 Abnormal findings on diagnostic imaging of other specified body structures; Z90.721 Acquired absence of ovaries, unilateral
CPT/HCPCS: 76830; 77067

== ENCOUNTER 2020-11-26 06:13 | Day surgery (SDC) | payer BC ==
[2020-11-22 15:15] VITALS: BMI 36.0
--- NOTE | 2020-11-25 21:01 | P.HPOB ---
History of Present Illness H&P Date: 11/25/20 Chief Complaint: Postmenopausal bleeding, endometrial thickening This is a 55 y.o. female, 4, para 4, who presents for dilatation and curettage with hysteroscopy due to postmenopausal bleeding and endometrial thickening on ultrasound. Her ultrasound showed uterus measuring 8 x 3.6 x 3.7 cm with endometrium 7.5 mm. Her left ovary was kathrin and right ovary was not visualized. She started having postmenopausal bleeding and cramping about 8 months ago intermittently. Bleeding episodes last about 2 days and occur about 4 times per month. She did get medical clearance for surgery from her primary physician. OB history . History of 3 vaginal deliveries and 1 . Child Care Specialist Hx: No hx STDs. Social Hx: . Works as loan secretary. Review of Systems Constitutional: Reports night sweats, Reports weight loss, Denies chills, Denies fever Eyes: bilateral blurred vision, denies pain Ears, nose, mouth and throat: Reports headache, Denies sore throat Cardiovascular: Denies chest pain, Denies shortness of breath Respiratory: Denies cough Gastrointestinal: Reports abdominal pain, Reports bloating, Reports heartburn, Reports nausea, Reports vomiting Genitourinary: Reports abnormal vaginal bleeding, Reports stress incontinence, Reports urinary frequency Musculoskeletal: Reports low back pain, Reports muscle cramps Integumentary: Denies pruritus, Denies rash Neurological: Reports headaches, Reports numbness Psychiatric: Denies anxiety, Denies depression Past Medical History Past Medical History: Diabetes Mellitus, Eye Disorder, Hypertension Additional Past Medical History / Comment(s): Glaucoma, Gastroparesis, Stage 2 Kidney Disease, patient only has right kidney. History of Any Multi-Drug Resistant Organisms: None Reported Past Surgical History: Appendectomy, Section, Hernia Repair, Tonsillectomy Additional Past Surgical History / Comment(s): 7 HERNIA SURGERIES, NOSE SURGERY, ovary removed, Donated Left Kidney. Past Anesthesia/Blood Transfusion Reactions: No Reported Reaction Past Psychological History: No Psychological Hx Reported Smoking Status: Former smoker Past Alcohol Use History: Rare Additional Past Alcohol Use History / Comment(s): SMOKED A TEENAGER. Past Drug Use History: None Reported - Past Family History Mother Family Medical History: Myocardial Infarction ([place]) Father Family Medical History: Deep Vein Thrombosis (DVT), Myocardial Infarction ([place]) Medications and Allergies Home Medications Medication Instructions Recorded Confirmed Type Fluticasone Nasal [place] [Flonase 1 spray EA NOSTRIL DAILY 03/18/15 11/22/20 History Nasal [place]] Albuterol Inhaler [Ventolin Hfa 1 puff INHALATION DIRECTED PRN 04/07/20 11/22/20 History Inhaler] Loratadine-Pseudoeph 10-240 mg 1 tab PO DAILY 04/07/20 11/22/20 History [Claritin-D 24 Hour] Losartan (Unknown Dose) 1 tab PO QAM 04/07/20 11/22/20 History Melatonin 5 mg PO HS PRN 04/07/20 11/22/20 History Metoclopramide [Reglan] 5 mg PO QID 04/07/20 11/22/20 History Montelukast (Unknown Dose) 1 tab PO HS 04/07/20 11/22/20 History Multivit-Min/FA/Lycopen/Lutein 1 each PO DAILY 04/07/20 11/22/20 History [Centrum Silver Tablet] Pantoprazole [Protonix] 40 mg PO DAILY PRN 04/07/20 11/22/20 History diphenhydrAMINE [Benadryl] 25 mg PO HS PRN 04/07/20 11/22/20 History metFORMIN HCL [Glucophage] 500 mg PO DAILY 04/07/20 11/22/20 History Allergies Allergy/AdvReac Type Severity Reaction Status Date / Time iodine Allergy Unknown Rash/Hives Verified 11/22/20 14:55 latex Allergy Unknown Rash/Hives Verified 11/22/20 14:55 shellfish derived [Shellfish] Allergy Unknown Rash/Hives Verified 11/22/20 14:55 erythromycin base Allergy Abdominal Verified 11/22/20 14:55 [Erythromycin Base] Pain, Nausea ALL NARCOTICS AdvReac Severe Severe Uncoded 11/22/20 14:55 Migraines that last for weeks. Exam Osteopathic Statement: *. No significant issues noted on an osteopathic structural exam other than those noted in the History and Physical/Consult. HEENT: within normal limits Heart: regular rate and rhythm Lungs: clear to auscultation bilaterally Abdomen: soft, non-tneder Pelvic: uterus mildly tender, no adnexal masses, mildly tender bilaterally Extremities: neg. Beltran's Assessment and Plan (1) Postmenopausal bleeding Current Visit: No Status: Acute Code(s): N95.0 - POSTMENOPAUSAL BLEEDING SNOMED Code(s): 47698549 (2) Endometrial thickening on ultrasound Current Visit: No Status: Acute Code(s): R93.89 - ABNORMAL FINDINGS ON DX IMAGING OF OTH BODY STRUCTURES SNOMED Code(s): 779193996 Plan: Proceed with dilatation and curettage with hysteroscopy. I have discussed the risks, benefits, and alternative therapies for the above- mentioned procedure and for both sedation/anesthesia as well as necessary blood products administration, if indicated, as they pertain to this patient. The patient has indicated her understanding and acceptance of the risks and procedures discussed.
[~2020-11-26 06:13] MED LIST: DEXAMETHASONE SOD PHOSPHATE 4 MG/ML 1 ML VIAL IV ONE; LACTATED RINGERS 1,000 ML IV SCH; LIDOCAINE 1% (10MG/ML) FOR IV START INTRADERMA PRN; ONDANSETRON 4 MG/2 ML VIAL IVP ONE; Pre Op ABX Message 1 EACH MISC MISCELLANE ONE
[2020-11-26 07:13] LABS: Glucose,Whole Blood 127 mg/dL (75-99)
[2020-11-26] MEDS ORDERED: KETAMINE 10 MG/ML 20 ML VIAL ONE (07:30)
[2020-11-26] MEDS ORDERED: MIDAZOLAM 2 MG/2 ML VIAL ONE (07:30)
[2020-11-26] MEDS ORDERED: PROPOFOL 10 MG/ML 20 ML VIAL IV ONE (07:30)
[2020-11-26] MEDS ORDERED: LIDOCAINE 1% INJ 10MG/ML (20 ML MDV) ONE (07:30)
--- NOTE | 2020-11-26 08:07 | P.OP ---
Date of Procedure: 11/26/20 Preoperative Diagnosis: Postmenopausal bleeding Endometrial thickening on ultrasound Postoperative Diagnosis: Same Procedure(s) Performed: Dilation and curettage with hysteroscopy Anesthesia: BOB Surgeon: Madeleine Ochoa Estimated Blood Loss (ml): 10 Pathology: other (Endometrial curettings) Condition: stable Disposition: same day Indications for Procedure: This is a 55 y.o. female, 4, para 4, who presents for dilatation and curettage with hysteroscopy due to postmenopausal bleeding and endometrial thickening on ultrasound. Her ultrasound showed uterus measuring 8 x 3.6 x 3.7 cm with endometrium 7.5 mm. Her left ovary was kathrin and right ovary was not visualized. She started having postmenopausal bleeding and cramping about 8 months ago intermittently. Bleeding episodes last about 2 days and occur about 4 times per month. She did get medical clearance for surgery from her primary physician. Operative Findings: Uterus is anteverted, with no adnexal masses palpated. Uterus is sounded to 8 cm. Upon hysteroscopy, a relatively atrophic pattern was noted. There may have been a little thickening near the left fundal region, but no specific polyps were visualized. Scant endometrial curettings are obtained. Description of Procedure: The patient is taken to the operating room where she is placed in the dorsal lithotomy position. She is prepped and draped in the normal sterile fashion using baby shampoo due to iodine ALLERGY. Her bladder is drained with a catheter. Examination is performed under anesthesia. Uterus is found to be small, anteverted, with no adnexal masses palpated. A weighted speculum was placed in the patient's vagina. A right angle retractor was used to visualize the cervix. The anterior lip of the cervix is grasped with a single-tooth tenaculum. The uterus is sounded to 8 cm and then the sound was removed. Cervix is gently dilated with Jesus dilators until a hysteroscope could be passed. Hysteroscopy is performed using normal saline. The above noted findings are made and pictures are taken. Next the hysteroscope was withdrawn and the cervix is dilated further. Next a polyp forceps is introduced with minimal tissue obtained. Next a medium-size sharp curet was introduced and sharp curettage was performed until a gritty texture was noted. endometrial tissue was obtained. Next the single-tooth tenaculum is removed. Pressure was applied with a ring forcep for a minute. Once the ring forcep is removed, no active bleeding is noted. All instrument are removed from the vagina. All sponge counts are correct. Patient is then taken to recovery room in stable condition.
[2020-11-26 08:22] VITALS: TEMP 97.2
[2020-11-26 08:25] LABS: Glucose,Whole Blood 120 mg/dL (75-99)
[2020-11-26 08:30] VITALS: RESP 16
[2020-11-26] MEDS ORDERED: ACETAMINOPHEN IV (For NPO) 1,000 MG/100 ML VIAL IVPB ONE (08:50)
[2020-11-26] MEDS ORDERED: ACETAMINOPHEN TAB 500 MG TAB ONE (09:14)
[2020-11-26] MEDS ORDERED: ACETAMINOPHEN TAB 500 MG TAB PO ONE (09:16)
[2020-11-26 09:31] VITALS: BP 135/80; PULSE 89
== END 2020-11-26 09:54 | disposition home or self-care (01) ==
LOC: OR 06:13
PROVIDERS: ATTEND Obstetrics & Gynecology
DX: N84.0 Polyp of corpus uteri (principal); N95.0 Postmenopausal bleeding; R93.89 Abnormal findings on diagnostic imaging of other specified body structures; E11.22 Type 2 diabetes mellitus with diabetic chronic kidney disease; I12.9 Hypertensive chronic kidney disease with stage 1 through stage 4 chronic kidney disease, or unspecified chronic kidney disease; N18.2 Chronic kidney disease, stage 2 (mild); Q60.0 Renal agenesis, unilateral; E11.43 Type 2 diabetes mellitus with diabetic autonomic (poly)neuropathy; K31.84 Gastroparesis; Z79.84 Long term (current) use of oral hypoglycemic drugs; Z79.899 Other long term (current) drug therapy; Z90.49 Acquired absence of other specified parts of digestive tract; Z98.890 Other specified postprocedural states; H40.9 Unspecified glaucoma; Z82.49 Family history of ischemic heart disease and other diseases of the circulatory system; Z87.891 Personal history of nicotine dependence; Z88.1 Allergy status to other antibiotic agents; Z88.5 Allergy status to narcotic agent; Z91.040 Latex allergy status
CPT/HCPCS: 58558; 81025; 88305; J2250; J1100; J2405; J2001; J0131; J2704

== ENCOUNTER 2022-03-16 10:01 | Emergency (ER) | payer OTHER ==
[2022-03-16 10:22] VITALS: RESP 18; TEMP 98
--- NOTE | 2022-03-16 10:55 | CT ---
EXAMINATION TYPE: CT brain wo con DATE OF EXAM: 03/16/2022 COMPARISON: None HISTORY: head injury obtained CT DLP: 1099.4 mGycm Automated exposure control for dose reduction was used. FINDINGS: The ventricular system is midline. Exam is limited by artifact with no obvious acute intraparenchymal hemorrhage or mass effect. Craniocervical junction preserved. Partially empty sella is present. Calv arium intact. IMPRESSION: NO ACUTE HEMORRHAGE OR MASS EFFECT.
--- NOTE | 2022-03-16 11:11 | ED ---
Head Injury HPI - General Chief complaint: Head Injury Stated complaint: [facility] - Fall, Head Injury Time Seen by Provider: 03/16/22 11:03 Source: patient, RN notes reviewed Mode of arrival: ambulatory Limitations: no limitations - History of Present Illness Initial comments: 56-year-old female presents emergency Department chief complaint of head injury. 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 Patient states she was initially days states that she's been having progressive headache, nausea and tired. Patient denies any blood thinners including aspirin and Plavix. Patient denies any neck pain no other associated complaints. - Related Data Home Medications Medication Instructions Recorded Confirmed Fluticasone Nasal Walsh [Flonase 1 spray EA NOSTRIL DAILY 03/18/15 11/22/20 Nasal Walsh] Albuterol Inhaler [Ventolin Hfa 1 puff INHALATION DIRECTED PRN 04/07/20 11/22/20 Inhaler] Loratadine-Pseudoeph 10-240 mg 1 tab PO DAILY 04/07/20 11/22/20 [Claritin-D 24 Hour] Losartan (Unknown Dose) 1 tab PO QAM 04/07/20 11/22/20 Melatonin 5 mg PO HS PRN 04/07/20 11/22/20 Metoclopramide [Reglan] 5 mg PO QID 04/07/20 11/22/20 Montelukast (Unknown Dose) 1 tab PO HS 04/07/20 11/22/20 Multivit-Min/FA/Lycopen/Lutein 1 each PO DAILY 04/07/20 11/22/20 [Centrum Silver Tablet] Pantoprazole [Protonix] 40 mg PO DAILY PRN 04/07/20 11/22/20 diphenhydrAMINE [Benadryl] 25 mg PO HS PRN 04/07/20 11/22/20 metFORMIN HCL [Glucophage] 500 mg PO DAILY 04/07/20 11/22/20 Allergies/Adverse reactions: Allergies Allergy/AdvReac Type Severity Reaction Status Date / Time iodine Allergy Unknown Rash/Hives Verified 03/16/22 10:22 latex Allergy Unknown Rash/Hives Verified 03/16/22 10:22 shellfish derived [Shellfish] Allergy Unknown Rash/Hives Verified 03/16/22 10:22 erythromycin base Allergy Abdominal Verified 03/16/22 10:22 [Erythromycin Base] Pain, Nausea ALL NARCOTICS AdvReac Severe Severe Uncoded 03/16/22 10:22 Migraines that last for weeks. Review of Systems ROS Statement: Those systems with pertinent positive or pertinent negative responses have been documented in the HPI. ROS Other: All systems not noted in ROS Statement are negative. Past Medical History Past Medical History: Diabetes Mellitus, Eye Disorder, Hypertension Additional Past Medical History / Comment(s): Glaucoma, Gastroparesis, Stage 2 Kidney Disease, patient only has right kidney. History of Any Multi-Drug Resistant Organisms: None Reported Past Surgical History: Appendectomy, Section, Hernia Repair, Tonsillectomy Additional Past Surgical History / Comment(s): 7 HERNIA SURGERIES, NOSE SURGERY, ovary removed, Donated Left Kidney. Past Anesthesia/Blood Transfusion Reactions: No Reported Reaction Past Psychological History: No Psychological Hx Reported Smoking Status: Former smoker Past Alcohol Use History: Rare Past Drug Use History: None Reported - Past Family History Mother Family Medical History: Myocardial Infarction ([place]) Father Family Medical History: Deep Vein Thrombosis (DVT), Myocardial Infarction ([place]) General Exam Limitations: no limitations General appearance: alert, in no apparent distress Head exam: Present: atraumatic, normocephalic, normal inspection Eye exam: Present: normal appearance, PERRL, EOMI. Absent: scleral icterus, conjunctival injection, periorbital swelling ENT exam: Present: normal exam, mucous membranes moist Neck exam: Present: normal inspection, full ROM. Absent: tenderness, meningismus, lymphadenopathy Respiratory exam: Present: normal lung sounds bilaterally. Absent: respiratory distress, wheezes, rales, rhonchi, stridor Cardiovascular Exam: Present: regular rate, normal rhythm, normal heart sounds. Absent: systolic murmur, diastolic murmur, rubs, gallop, clicks Neurological exam: Present: alert, oriented X3, CN II-XII intact, reflexes normal. Absent: motor sensory deficit Skin exam: Present: warm, dry, intact, normal color. Absent: rash Course Vital Signs 03/16/22 03/16/22 10:19 11:33 Temperature 98 F Pulse Rate 82 80 Respiratory 18 18 Rate Blood Pressure 141/75 120/78 O2 Sat by Pulse 95 100 Oximetry Medical Decision Making - Medical Decision Making CT is unremarkable. As interpreted by me and radiology patient is stable for discharge with follow-up she needs clearance prior to returning to work. Disposition Clinical Impression: Closed head injury Disposition: HOME SELF-CARE Condition: Stable Instructions (If sedation given, give patient instructions): Concussion (ED), Head Injury (ED) Additional Instructions: Please return to the Emergency Department if symptoms worsen or any other concerns. Is patient prescribed a controlled substance at d/c from ED?: No Referrals: Jon Denise DO [Primary Care Provider] - 1-2 days Time of Disposition: 11:11
[2022-03-16 11:35] VITALS: BP 120/78; PULSE 80
== END 2022-03-16 11:34 | disposition home or self-care (01) ==
LOC: EC 10:01
DX: S09.90XA Unspecified injury of head, initial encounter (principal); E11.9 Type 2 diabetes mellitus without complications; I10 Essential (primary) hypertension; Z87.891 Personal history of nicotine dependence; Z91.040 Latex allergy status; Z88.1 Allergy status to other antibiotic agents; Z88.5 Allergy status to narcotic agent; Z91.013 Allergy to seafood; Z88.8 Allergy status to other drugs, medicaments and biological substances; Z79.84 Long term (current) use of oral hypoglycemic drugs; Z79.899 Other long term (current) drug therapy; W22.8XXA Striking against or struck by other objects, initial encounter; Y93.01 Activity, walking, marching and hiking; Y92.811 Bus as the place of occurrence of the external cause
CPT/HCPCS: 70450; 99283

== ENCOUNTER → 2022-03-17 | Outpatient (CLI) | payer OTHER ==
--- NOTE | 2022-03-17 12:18 | CT ---
EXAMINATION TYPE: CT cervical spine wo con DATE OF EXAM: 03/17/2022 COMPARISON: None HISTORY: Sprain of ligaments of cervical spine STAT [employer] CT DLP: 849.20 mGycm Automated exposure control for dose reduction was used. TECHNIQUE: CT scan of the cervical spine is obtained without contrast, axial images are obtained, sa gittal and coronal reformatted images are also reviewed. FINDINGS: Assessment the spinal canal is nondiagnostic due to resolution artifact. There is a kyphosi s of the spine with apparent fusion of C2 and C3. There is chronic. There is multilevel degenerative disc disease with severe changes extending from level C2-C7. There is posterior spondylosis and facet arthropathy at multiple levels with suspected multilevel can al stenosis. No acute fracture. Lung apices clear. Prevertebral soft tissue structures are within normal limits. IMPRESSION: 1. Multilevel severe degenerative disc disease with multilevel foraminal encroachment and canal steno sis. Assessment of spinal canal limited due to resolution. There is impression upon the thecal sac wi th possible cord contact. MRI of the cervical spine is recommended for further evaluation.
== END | disposition home or self-care (01) ==
LOC: RADCTMAIN 11:15
PROVIDERS: ATTEND Emergency Medicine
DX: S13.4XXA Sprain of ligaments of cervical spine, initial encounter (principal); M50.30 Other cervical disc degeneration, unspecified cervical region; M48.02 Spinal stenosis, cervical region
CPT/HCPCS: 72125

== ENCOUNTER 2022-12-21 13:17 | Emergency (ER) | payer OTHER ==
[2022-12-21] MEDS ORDERED: KETOROLAC 15 MG/ML 1 ML VIAL IM STA (13:39)
--- NOTE | 2022-12-21 14:36 | XR ---
EXAMINATION TYPE: XR hand complete LT DATE OF EXAM: 12/21/2022 COMPARISON: NONE HISTORY: Pain TECHNIQUE: Three views are submitted. FINDINGS: The osseous structures are intact. The joint spaces are preserved and there is no acute fracture or dislocation. A linear density seen adjacent to the DIP joint second digit to small to characterize bu t likely . Soft tissue edema noted on the lateral view IMPRESSION: 1. No definite acute fracture or dislocation if symptoms persist, follow-up study in 7 to 10 days wo uld be suggested
[2022-12-21 15:47] VITALS: RESP 18
[2022-12-21] MEDS ORDERED: ACETAMINOPHEN TAB 500 MG TAB PO STA (15:56)
--- NOTE | 2022-12-21 15:57 | ED ---
General Adult HPI - General Chief complaint: Extremity Injury, Upper Stated complaint: L hand injury Time Seen by Provider: 12/21/22 15:22 Source: patient Mode of arrival: ambulatory Limitations: no limitations - History of Present Illness Initial comments: 57 year Old female presenting to the ED with a chief complaint of hand injury. Patient states that she was walking her dog. States that the leash was around her left wrist. States that the dog took off and chest after a cat while the leash was still on causing her left hand to hit a wooden post. Now notes pain of her left hand. States no other injury at this time. Denies chest pain shortness breath. No other complaints. - Related Data Home Medications Medication Instructions Recorded Confirmed Fluticasone Nasal [place] [Flonase 1 spray EA NOSTRIL DAILY 03/18/15 11/22/20 Nasal [place]] Albuterol Inhaler [Ventolin Hfa 1 puff INHALATION DIRECTED PRN 04/07/20 11/22/20 Inhaler] Loratadine-Pseudoeph 10-240 mg 1 tab PO DAILY 04/07/20 11/22/20 [Claritin-D 24 Hour] Losartan (Unknown Dose) 1 tab PO QAM 04/07/20 11/22/20 Melatonin 5 mg PO HS PRN 04/07/20 11/22/20 Metoclopramide [Reglan] 5 mg PO QID 04/07/20 11/22/20 Montelukast (Unknown Dose) 1 tab PO HS 04/07/20 11/22/20 Multivit-Min/FA/Lycopen/Lutein 1 each PO DAILY 04/07/20 11/22/20 [Centrum Silver Tablet] Pantoprazole [Protonix] 40 mg PO DAILY PRN 04/07/20 11/22/20 diphenhydrAMINE [Benadryl] 25 mg PO HS PRN 04/07/20 11/22/20 metFORMIN HCL [Glucophage] 500 mg PO DAILY 04/07/20 11/22/20 Allergies Allergy/AdvReac Type Severity Reaction Status Date / Time iodine Allergy Unknown Rash/Hives Verified 12/21/22 13:30 latex Allergy Unknown Rash/Hives Verified 12/21/22 13:30 shellfish derived [Shellfish] Allergy Unknown Rash/Hives Verified 12/21/22 13:30 erythromycin base Allergy Abdominal Verified 12/21/22 13:30 [Erythromycin Base] Pain, Nausea ALL NARCOTICS AdvReac Severe Severe Uncoded 12/21/22 13:30 Migraines that last for weeks. Review of Systems ROS Statement: Those systems with pertinent positive or pertinent negative responses have been documented in the HPI. ROS Other: All systems not noted in ROS Statement are negative. Past Medical History Past Medical History: Diabetes Mellitus, Eye Disorder, Hypertension Additional Past Medical History / Comment(s): Glaucoma, Gastroparesis, Stage 2 Kidney Disease, patient only has right kidney. History of Any Multi-Drug Resistant Organisms: None Reported Past Surgical History: Appendectomy, Section, Hernia Repair, Tonsillectomy Additional Past Surgical History / Comment(s): 7 HERNIA SURGERIES, NOSE SURGERY, ovary removed, Donated Left Kidney. Past Anesthesia/Blood Transfusion Reactions: No Reported Reaction Past Psychological History: No Psychological Hx Reported Smoking Status: Former smoker Past Alcohol Use History: Rare Past Drug Use History: None Reported - Past Family History Mother Family Medical History: Myocardial Infarction ([place]) Father Family Medical History: Deep Vein Thrombosis (DVT), Myocardial Infarction ([place]) General Exam Limitations: no limitations General appearance: alert Neck exam: Present: normal inspection Respiratory exam: Present: normal lung sounds bilaterally Cardiovascular Exam: Present: regular rate, normal rhythm GI/Abdominal exam: Present: soft Extremities exam: Present: other (Strength and sensation equal and intact in bilateral upper and lower extremity. Patient does have snuffbox tenderness to palpation of the left hand.) Neurological exam: Present: alert, oriented X3 Skin exam: Present: warm, dry Course Vital Signs 12/21/22 12/21/22 13:31 15:44 Temperature 98 F 97.7 F Pulse Rate 89 81 Respiratory 16 18 Rate Blood Pressure 162/87 157/84 O2 Sat by Pulse 97 98 Oximetry Medical Decision Making - Medical Decision Making Was pt. sent in by a medical professional or institution (, [place], [employer], urgent care, hospital, or senior care...) When possible be specific @ -No Did you speak to anyone other than the patient for history (EMS, parent, family, police, friend...)? What history was obtained from this source @ -No Did you review nursing and triage notes (agree or disagree)? Why? @ -I reviewed and agree with nursing and triage notes Were old charts reviewed (outside hosp., previous admission, EMS record, old EKG, old radiological studies, urgent care reports/EKG's, senior care records)? Report findings @ -No old charts were reviewed Differential Diagnosis (chest pain, altered mental status, abdominal pain women, abdominal pain men, vaginal bleeding, weakness, fever, dyspnea, syncope, headache, dizziness, GI bleed, back pain, seizure, CVA, palpatations, mental health, musculoskeletal)? @ -Differential Musculoskeletal Muscular strain, contusion, ligament sprain, fracture, arthritis, septic arthritis, bursitis, cellulitis, muscle spasm, nerve compression, DVT, arterial occlusion, herpes zoster, electrolyte abnormality, tumor.... This is not meant to be in all inclusive list EKG interpreted by me (3pts min.). @ -None X-rays interpreted by me (1pt min.). @ -X-ray of the left hand shows no acute findings. Interpreted by me. CT interpreted by me (1pt min.). @ -None done U/S interpreted by me (1pt. min.). @ -None done What testing was considered but not performed or refused? (CT, X-rays, U/S, labs)? Why? @ -None What meds were considered but not given or refused? Why? @ -None Did you discuss the management of the patient with other professionals (professionals i.e. , PA, [employer], lab, RT, psych nurse, director social, banana handler, teacher, state patrol officer, employment evaluator/case manager)? Give summary @ -No Was smoking cessation discussed for >3mins.? @ -No Was critical care preformed (if so, how long)? @ -No Were there social determinants of health that impacted care today? How? (Homelessness, low income, unemployed, alcoholism, drug addiction, transportation, low edu. Level, literacy, decrease access to med. care, detention, rehab)? @ -No Was there de-escalation of care discussed even if they declined (Discuss DNR or withdrawal of care, Hospice)? DNR status @ -No What co-morbidities impacted this encounter? (DM, HTN, Smoking, COPD, CAD, Cancer, CVA, ARF, Chemo, Hep., AIDS, mental health diagnosis, sleep apnea, morbid obesity)? @ -None Was patient admitted / discharged? Hospital course, mention meds given and route, prescriptions, significant lab abnormalities, going to OR and other pertinent info. @ -Discharge 57-year-old female presenting with left hand injury. Imaging of the left hand shows no acute findings. Patient did have snuffbox tenderness to palpation on exam. Patient placed in thumb spica splint. Provided referral to orthopedics. Discharged home in stable condition. Discussed return precautions with patient who verbalizes agreement. Undiagnosed new problem with uncertain prognosis? @ -No Drug Therapy requiring intensive monitoring for toxicity (Heparin, Nitro, Insulin, Cardizem)? @ -No Were any procedures done? @ -Yes, splint placement Diagnosis/symptom? @ -Left hand injury Acute, or Chronic, or Acute on Chronic? @ -Acute Uncomplicated (without systemic symptoms) or Complicated (systemic symptoms)? @ -Uncomplicated Side effects of treatment? @ -No Exacerbation, Progression, or Severe Exacerbation? @ -No Poses a threat to life or bodily function? How? (Chest pain, [place], [place], pneumonia, PE, COPD, DKA, ARF, appy, cholecystitis, CVA, Diverticulitis, Homicidal, Suicidal, threat to staff... and all critical care pts) @ -No Disposition Clinical Impression: Injury of left hand Disposition: HOME SELF-CARE Condition: Good Instructions (If sedation given, give patient instructions): Hand Sprain (ED) Additional Instructions: Please return to the Emergency Department if symptoms worsen or any other concerns. Continue wearing thumb spica splint. Follow up with PCP/orthopedist to rule out scaphoid fracture. Is patient prescribed a controlled substance at d/c from ED?: No Referrals: Haritha Nieto DO [Primary Care Provider] - 1-2 days Pavel Palmer DO [Doctor of Osteopathic Medicine] - 1-2 days Time of Disposition: 16:00
[2022-12-21 16:19] VITALS: BP 150/71; PULSE 79; TEMP 98
== END 2022-12-21 16:15 | disposition home or self-care (01) ==
LOC: EC 13:17
DX: S69.92XA Unspecified injury of left wrist, hand and finger(s), initial encounter (principal); E11.22 Type 2 diabetes mellitus with diabetic chronic kidney disease; I12.9 Hypertensive chronic kidney disease with stage 1 through stage 4 chronic kidney disease, or unspecified chronic kidney disease; N18.2 Chronic kidney disease, stage 2 (mild); E11.43 Type 2 diabetes mellitus with diabetic autonomic (poly)neuropathy; K31.84 Gastroparesis; Z79.84 Long term (current) use of oral hypoglycemic drugs; Z79.899 Other long term (current) drug therapy; Z88.1 Allergy status to other antibiotic agents; Z88.5 Allergy status to narcotic agent; Z91.040 Latex allergy status; Z91.013 Allergy to seafood; Z91.09 Other allergy status, other than to drugs and biological substances; Z90.49 Acquired absence of other specified parts of digestive tract; Z87.891 Personal history of nicotine dependence; W22.8XXA Striking against or struck by other objects, initial encounter; Y93.K1 Activity, walking an animal
CPT/HCPCS: 73130; 99283; 29125; 96372; J1885

== ENCOUNTER 2023-05-01 22:23 | Emergency (ER) | payer OTHER ==
[2023-05-01 23:28] LABS: Appearance,Urine Cloudy (Clear); Bacteria,Urine Few /hpf; Bilirubin,Urine Negative (Negative); Blood,Urine Large (Negative); Color,Urine Light Yellow; Glucose,Urine (UA) Negative (Negative); Ketones,Urine Negative (Negative); Leukocyte Esterase,Urine Large (Negative); Nitrite,Urine Negative (Negative); Protein,Urine 1+ (Negative); RBC,Urine >182 /hpf (0-5); Specific Gravity,Urine 1.016 (1.001-1.035); Squamous Epithelial Cell,Urine <1 /hpf (0-4); Urobilinogen,Urine <2.0 mg/dL (<2.0); WBC,Urine 160 /hpf (0-5)
--- NOTE | 2023-05-01 23:37 | ED ---
Female Urogenital HPI - General Stated complaint: blood in urine Time Seen by Provider: 05/01/23 23:36 Source: patient Mode of arrival: ambulatory Limitations: no limitations - History of Present Illness Initial comments: 57-year-old female presenting with chief complaint of hematuria. Symptoms started this evening. Patient is having some right-sided abdominal pain that partially wraps around the hip. 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 She does admit to some dysuria as well. She admits to some nausea. No fever, chills, vomiting, hematochezia, melena, history of kidney stones. - Related Data Home Medications Medication Instructions Recorded Confirmed Fluticasone Nasal [place] [Flonase 1 spray EA NOSTRIL DAILY 03/18/15 11/22/20 Nasal [place]] Albuterol Inhaler [Ventolin Hfa 1 puff INHALATION DIRECTED PRN 04/07/20 11/22/20 Inhaler] Loratadine-Pseudoeph 10-240 mg 1 tab PO DAILY 04/07/20 11/22/20 [Claritin-D 24 Hour] Losartan (Unknown Dose) 1 tab PO QAM 04/07/20 11/22/20 Melatonin 5 mg PO HS PRN 04/07/20 11/22/20 Metoclopramide [Reglan] 5 mg PO QID 04/07/20 11/22/20 Montelukast (Unknown Dose) 1 tab PO HS 04/07/20 11/22/20 Multivit-Min/FA/Lycopen/Lutein 1 each PO DAILY 04/07/20 11/22/20 [Centrum Silver Tablet] Pantoprazole [Protonix] 40 mg PO DAILY PRN 04/07/20 11/22/20 diphenhydrAMINE [Benadryl] 25 mg PO HS PRN 04/07/20 11/22/20 metFORMIN HCL [Glucophage] 500 mg PO DAILY 04/07/20 11/22/20 Previous Rx's Medication Instructions Recorded Cefpodoxime Proxetil [Vantin] 200 mg PO Q12HR 10 Days #20 tab 05/02/23 Allergies Allergy/AdvReac Type Severity Reaction Status Date / Time iodine Allergy Unknown Rash/Hives Verified 05/01/23 23:34 latex Allergy Unknown Rash/Hives Verified 05/01/23 23:34 shellfish derived [Shellfish] Allergy Unknown Rash/Hives Verified 05/01/23 23:34 erythromycin base Allergy Abdominal Verified 05/01/23 23:34 [Erythromycin Base] Pain, Nausea ALL NARCOTICS AdvReac Severe Severe Uncoded 05/01/23 23:34 Migraines that last for weeks. Review of Systems ROS Statement: Those systems with pertinent positive or pertinent negative responses have been documented in the HPI. ROS Other: All systems not noted in ROS Statement are negative. Past Medical History Past Medical History: Diabetes Mellitus, Eye Disorder, Hypertension Additional Past Medical History / Comment(s): Glaucoma, Gastroparesis, Stage 2 Kidney Disease, patient only has right kidney. History of Any Multi-Drug Resistant Organisms: None Reported Past Surgical History: Appendectomy, Section, Hernia Repair, Tonsillectomy Additional Past Surgical History / Comment(s): 7 HERNIA SURGERIES, NOSE SURGERY, ovary removed, Donated Left Kidney. Past Anesthesia/Blood Transfusion Reactions: No Reported Reaction Past Psychological History: No Psychological Hx Reported Smoking Status: Former smoker Past Alcohol Use History: Rare Past Drug Use History: None Reported - Past Family History Mother Family Medical History: Myocardial Infarction ([place]) Father Family Medical History: Deep Vein Thrombosis (DVT), Myocardial Infarction ([place]) General Exam - General Exam Comments Initial Comments: Visual Physical Exam Vital signs reviewed General: Well-appearing, nontoxic, no acute distress. Head: Normocephalic, atraumatic Eyes: PERRLA, EOMI ENT: Airway patent Chest: Nonlabored breathing Skin: No visual rash, normal skin tone Neuro: Alert and oriented 3 Musculoskeletal: No gross abnormalities Limitations: no limitations General appearance: alert, in no apparent distress Head exam: Present: atraumatic, normocephalic Eye exam: Present: normal appearance, EOMI Neck exam: Present: normal inspection Respiratory exam: Absent: respiratory distress Cardiovascular Exam: Present: regular rate Neurological exam: Present: alert, oriented X3 Psychiatric exam: Present: normal affect, normal mood Skin exam: Present: warm, dry Course Vital Signs 05/01/23 05/02/23 23:34 01:34 Temperature 98.1 F 98.3 F Pulse Rate 102 H 98 Respiratory 16 18 Rate Blood Pressure 150/68 146/80 O2 Sat by Pulse 97 100 Oximetry Medical Decision Making - Medical Decision Making Was pt. sent in by a medical professional or institution (, PA, RN WELLNESS, urgent c are, hospital, or [facility]...) When possible be specific @ -No Did you speak to anyone other than the patient for history (EMS, parent, family, police, friend...)? What history was obtained from this source @ -No Did you review nursing and triage notes (agree or disagree)? Why? @ -I reviewed and agree with nursing and triage notes Were old charts reviewed (outside hosp., previous admission, EMS record, old EKG, old radiological studies, urgent care reports/EKG's, [facility] records)? Report findings @ -No old charts were reviewed Differential Diagnosis (chest pain, altered mental status, abdominal pain women, abdominal pain men, vaginal bleeding, weakness, fever, dyspnea, syncope, headache, dizziness, GI bleed, back pain, seizure, CVA, palpatations, mental health, musculoskeletal)? @ -MDM Differential Abdominal Pain Women: Appendicitis, Cholecystitis, diverticulosis, ischemic bowel, pancreatitis, hepatitis, UTI, gastroenteritis, AAA, incarcerated hernia, bowel obstruction, constipation, inflammatory bowel, hepatitis, peptic ulcer disease, splenic infarction, perforated viscus, vulvitis, ovarian torsion, PID, kidney stone, placenta abruption... This is not meant to be an all-inclusive list EKG interpreted by me (3pts min.). @ -As above X-rays interpreted by me (1pt min.). @ -None done CT interpreted by me (1pt min.). @ -CT shows no right-sided renal stones or hydronephrosis. No significant new or acute findings to account for patient's symptoms. U/S interpreted by me (1pt. min.). @ -None done What testing was considered but not performed or refused? (CT, X-rays, U/S, labs)? Why? @ -None What meds were considered but not given or refused? Why? @ -None Did you discuss the management of the patient with other professionals (professionals i.e. , PA, RN WELLNESS, lab, RT, psych nurse, social media assistant, theoretical physicist, teacher, environmental conservation officer, medical case worker)? Give summary @ -No Was smoking cessation discussed for >3mins.? @ -No Was critical care preformed (if so, how long)? @ -No Were there social determinants of health that impacted care today? How? (Homelessness, low income, unemployed, alcoholism, drug addiction, transportation, low edu. Level, literacy, decrease access to med. care, care home, rehab)? @ -No Was there de-escalation of care discussed even if they declined (Discuss DNR or withdrawal of care, Hospice)? DNR status @ -No What co-morbidities impacted this encounter? (DM, HTN, Smoking, COPD, CAD, Cancer, CVA, ARF, Chemo, Hep., AIDS, mental health diagnosis, sleep apnea, morbid obesity)? @ -Patient has 1 kidney due to previous donation Was patient admitted / discharged? Hospital course, mention meds given and route, prescriptions, significant lab abnormalities, going to OR and other pertinent info. @ -57-year-old female presenting with chief complaint of abdominal pain and hematuria. 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 History and physical exam were conducted. WBC 12.1. Lactic acid 2.1 and BUN 23., patient is receiving IV fluids. Urine shows large blood and leukocytes. CT shows no stone or hydronephrosis. Patient is given 1 g of Rocephin and blood cultures are drawn. I offered the patient admission, she declined. She is started on cefpodoxime 200 mg twice daily for 10 days. Educated on alarm symptoms that should prompt reevaluation. Follow-up with PCP. Report back to ER with any new or worsening symptoms. Discussed return parameters and answered all questions. Patient conveyed verbal understanding and agreed to the plan. I discussed this case in detail with my attending Dr. Ordonez Undiagnosed new problem with uncertain prognosis? @ -No Drug Therapy requiring intensive monitoring for toxicity (Heparin, Nitro, Insulin, Cardizem)? @ -No Were any procedures done? @ -No Diagnosis/symptom? @ -UTI Acute, or Chronic, or Acute on Chronic? @ -Acute Uncomplicated (without systemic symptoms) or Complicated (systemic symptoms)? @ -Uncomplicated Side effects of treatment? @ -No Exacerbation, Progression, or Severe Exacerbation? @ -No Poses a threat to life or bodily function? How? (Chest pain, [place], [place], pneumonia, PE, COPD, DKA, ARF, appy, cholecystitis, CVA, Diverticulitis, Homicidal, Suicidal, threat to staff... and all critical care pts) @ -Low likelihood - Lab Data Result diagrams: 05/01/23 23:57 05/01/23 23:57 Lab Results 05/01/23 05/01/23 05/01/23 Range/Units 23:12 23:57 23:57 WBC 12.1 H (3.8-10.6) k/uL RBC 4.78 (3.80-5.40) m/uL Hgb 13.7 (11.4-16.0) gm/dL Hct 41.9 (34.0-46.0) % MCV 87.6 (80.0-100.0) fL MCH 28.5 (25.0-35.0) pg MCHC 32.6 (31.0-37.0) g/dL RDW 14.1 (11.5-15.5) % Plt Count (150-450) k/uL MPV 11.3 Neutrophils % 61 % Lymphocytes % 30 % Monocytes % 5 % Eosinophils % 2 % Basophils % 0 % Neutrophils # 7.3 (1.3-7.7) k/uL Lymphocytes # 3.6 (1.0-4.8) k/uL Monocytes # 0.7 (0-1.0) k/uL Eosinophils # 0.3 (0-0.7) k/uL Basophils # 0.0 (0-0.2) k/uL Manual Slide Review Performed Sodium 141 (137-145) mmol/L Potassium 4.0 (3.5-5.1) mmol/L Chloride 108 H (98-107) mmol/L Carbon Dioxide 23 (22-30) mmol/L Anion Gap 10 mmol/L BUN 23 H (7-17) mg/dL Creatinine 0.88 (0.52-1.04) mg/dL Est GFR (CKD-EPI)AfAm 86 (>60 ml/min/1.73 sqM) Est GFR (CKD-EPI)NonAf 74 (>60 ml/min/1.73 sqM) Glucose 175 H (74-99) mg/dL Lactic Ac Sepsis Rflx Plasma Lactic Acid [place] (0.7-2.0) mmol/L Calcium 9.7 (8.4-10.2) mg/dL Total Bilirubin 0.4 (0.2-1.3) mg/dL AST 30 (14-36) U/L ALT 32 (4-34) U/L Alkaline Phosphatase 79 (38-126) U/L Total Protein 6.9 (6.3-8.2) g/dL Albumin 4.3 (3.5-5.0) g/dL Urine Color Light Yellow Urine Appearance Cloudy H (Clear) Urine pH 6.0 (5.0-8.0) Ur Specific [place] 1.016 (1.001-1.035) Urine Protein 1+ H (Negative) Urine Glucose (UA) Negative (Negative) Urine Ketones Negative (Negative) Urine Blood Large H (Negative) Urine Nitrite Negative (Negative) Urine Bilirubin Negative (Negative) Urine Urobilinogen <2.0 (<2.0) mg/dL Ur Leukocyte Esterase Large H (Negative) Urine RBC >182 H (0-5) /hpf Urine WBC 160 H (0-5) /hpf Urine WBC Clumps Occasional H (None) /hpf Ur Squamous Epith Cells <1 (0-4) /hpf Urine Bacteria Few H (None) /hpf 05/01/23 05/02/23 Range/Units 23:57 00:49 WBC (3.8-10.6) k/uL RBC (3.80-5.40) m/uL Hgb (11.4-16.0) gm/dL Hct (34.0-46.0) % MCV (80.0-100.0) fL MCH (25.0-35.0) pg MCHC (31.0-37.0) g/dL RDW (11.5-15.5) % Plt Count (150-450) k/uL MPV Neutrophils % % Lymphocytes % % Monocytes % % Eosinophils % % Basophils % % Neutrophils # (1.3-7.7) k/uL Lymphocytes # (1.0-4.8) k/uL Monocytes # (0-1.0) k/uL Eosinophils # (0-0.7) k/uL Basophils # (0-0.2) k/uL Manual Slide Review Sodium (137-145) mmol/L Potassium (3.5-5.1) mmol/L Chloride (98-107) mmol/L Carbon Dioxide (22-30) mmol/L Anion Gap mmol/L BUN (7-17) mg/dL Creatinine (0.52-1.04) mg/dL Est GFR (CKD-EPI)AfAm (>60 ml/min/1.73 sqM) Est GFR (CKD-EPI)NonAf (>60 ml/min/1.73 sqM) Glucose (74-99) mg/dL Lactic Ac Sepsis Rflx Y Plasma Lactic Acid [place] 2.1 H* (0.7-2.0) mmol/L Calcium (8.4-10.2) mg/dL Total Bilirubin (0.2-1.3) mg/dL AST (14-36) U/L ALT (4-34) U/L Alkaline Phosphatase (38-126) U/L Total Protein (6.3-8.2) g/dL Albumin (3.5-5.0) g/dL Urine Color Urine Appearance (Clear) Urine pH (5.0-8.0) Ur Specific [place] (1.001-1.035) Urine Protein (Negative) Urine Glucose (UA) (Negative) Urine Ketones (Negative) Urine Blood (Negative) Urine Nitrite (Negative) Urine Bilirubin (Negative) Urine Urobilinogen (<2.0) mg/dL Ur Leukocyte Esterase (Negative) Urine RBC (0-5) /hpf Urine WBC (0-5) /hpf Urine WBC Clumps (None) /hpf Ur Squamous Epith Cells (0-4) /hpf Urine Bacteria (None) /hpf Disposition Clinical Impression: UTI (urinary tract infection) Disposition: HOME SELF-CARE Condition: Good Instructions (If sedation given, give patient instructions): Urinary Tract Infection in Women (ED) Additional Instructions: Follow-up with PCP. Report back to ER with any new or worsening symptoms. Take medication as prescribed. Prescriptions: Cefpodoxime Proxetil [Vantin] 200 mg PO Q12HR 10 Days #20 tab Is patient prescribed a controlled substance at d/c from ED?: No Referrals: Tee Cisneros MD [Primary Care Provider] - 1-2 days Time of Disposition: 02:15
[2023-05-02 00:10] LABS: Basophils % (A) 0 %; Eosinophils # (A) 0.3 k/uL (0-0.7); Eosinophils % (A) 2 %; HCT 41.9 % (34.0-46.0); HGB 13.7 gm/dL (11.4-16.0); Lymphocytes # (A) 3.6 k/uL (1.0-4.8); Lymphocytes % (A) 30 %; MCH 28.5 pg (25.0-35.0); MCHC 32.6 g/dL (31.0-37.0); MCV 87.6 fL (80.0-100.0); Mean Platelet Volume 11.3; Monocytes # (A) 0.7 k/uL (0-1.0); Monocytes % (A) 5 %; Neutrophils # (A) 7.3 k/uL (1.3-7.7); Neutrophils % (A) 61 %; RBC 4.78 m/uL (3.80-5.40); RDW 14.1 % (11.5-15.5); WBC 12.1 k/uL (3.8-10.6)
[2023-05-02 00:19] LABS: ALT 32 U/L (4-34); AST 30 U/L (14-36); African American GFR (CKD) 86 (>60 ml/min/1.73 sqM); Albumin 4.3 g/dL (3.5-5.0); Alkaline Phosphatase 79 U/L (38-126); Anion Gap 10 mmol/L; Blood Urea Nitrogen 23 mg/dL (7-17); Calcium 9.7 mg/dL (8.4-10.2); Carbon Dioxide 23 mmol/L (22-30); Chloride 108 mmol/L (98-107); Glucose 175 mg/dL (74-99); Non-African American GFR(CKD) 74 (>60 ml/min/1.73 sqM); Sodium 141 mmol/L (137-145); Total Bilirubin 0.4 mg/dL (0.2-1.3); Total Protein 6.9 g/dL (6.3-8.2)
--- NOTE | 2023-05-02 00:49 | CT ---
EXAMINATION TYPE: CT abdomen pelvis wo con DATE OF EXAM: 05/02/2023 HISTORY: Pt presents with hematuria, abdominal pain, right flank area. Pt only has 1 kidney ( donat ed). H/O 7 HERNIA SURGERIES, OVARY REMOVED. BLADDER SLING. CT DLP: 1078.8 mGycm. Automated Exposure Control for Dose Reduction was Utilized. TECHNIQUE: CT scan of the abdomen and pelvis is performed without oral or IV contrast. COMPARISON: Prior CT abdomen and pelvis October 05, 2019 FINDINGS: Within the limitations of a non-contrast study, the following observations are made. LUNG BASES: No significant abnormality is appreciated. LIVER/GB: Cholecystectomy clips are redemonstrated. Liver remains diffusely low density consistent wi th fatty infiltrative hepatocellular disease PANCREAS: No significant abnormality is seen. SPLEEN: No significant abnormality is seen. ADRENALS: No significant abnormality is seen. KIDNEYS: Left kidney is not seen similar to prior. No right-sided renal calculus or hydronephrosis. N o intrarenal calculus and poorly distended bladder. BOWEL: Numerous coils from prior ventral wall hernia repair surgery redemonstrated. Persistent wide n elda hernia containing nondilated bowel loops on current study. Distal colonic diverticula are redemon strated. No CT evidence for acute diverticulitis. GENITAL ORGANS: Anteverted uterus redemonstrated. LYMPH NODES: No greater than 1cm abdominal or pelvic lymph nodes are appreciated. OSSEOUS STRUCTURES: No significant abnormality is seen. OTHER: No significant additional abnormality is seen. IMPRESSION: No right-sided renal stones or hydronephrosis. No significant new or acute findings to ac count for patient's symptoms.
[2023-05-02] MEDS: cefTRIAXone IN SWFI 1,000 MG/10 ML SYRINGE IVP STA (01:33)
[2023-05-02] MEDS: SODIUM CHLORIDE 0.9% 1,000 ML IV ONE (01:34)
[2023-05-02 01:46] VITALS: BP 146/80; PULSE 98; RESP 18; TEMP 98.3
[2023-05-02] MEDS: SODIUM CHLORIDE 0.9% 1,000 ML IV SCH (02:24)
[2023-05-02] MEDS: ACETAMINOPHEN TAB 500 MG TAB PO STA (02:33)
== END 2023-05-02 02:39 | disposition home or self-care (01) ==
LOC: EC 22:23
DX: N39.0 Urinary tract infection, site not specified (principal); B95.8 Unspecified staphylococcus as the cause of diseases classified elsewhere; E11.22 Type 2 diabetes mellitus with diabetic chronic kidney disease; K31.84 Gastroparesis; E11.43 Type 2 diabetes mellitus with diabetic autonomic (poly)neuropathy; I12.9 Hypertensive chronic kidney disease with stage 1 through stage 4 chronic kidney disease, or unspecified chronic kidney disease; N18.2 Chronic kidney disease, stage 2 (mild); Z87.891 Personal history of nicotine dependence; Z79.84 Long term (current) use of oral hypoglycemic drugs; Z79.899 Other long term (current) drug therapy; Z88.1 Allergy status to other antibiotic agents; Z88.5 Allergy status to narcotic agent; Z88.8 Allergy status to other drugs, medicaments and biological substances; Z91.041 Radiographic dye allergy status; Z91.013 Allergy to seafood; Z91.040 Latex allergy status
CPT/HCPCS: 36415 ×2; 80053; 83605; 85025; 81001; 87040; 87086; 74176; 96374; 96361; 99284; J0696

== ENCOUNTER → 2023-10-31 | Outpatient (CLI) | payer OTHER ==
--- NOTE | 2023-10-31 16:40 | CT ---
EXAMINATION TYPE: CT sinus wo con CT DLP: 468.0 mGycm, Automated exposure control for dose reduction was used. DATE OF EXAM: 10/31/2023 4:23 PM COMPARISON: 03/16/2022. 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 Additional coronal and sagittal reformatted images were submitted for evaluation. Contrast used: none Oral contrast used: none FINDINGS: Frontal sinuses: Normally developed with mild mucosal thickening. Frontal Recess: Clear Maxillary Sinuses: Normally developed with mild mucosal thickening. Maxillary Infundibula([facility]): Mild mucosal thickening narrows the infundibula., No [place] cells identif ied. Ethmoid sinuses: Normally developed with mild mucosal thickening. Ethmoidal notch: Protected and abut ting the lateral lamina. Sphenoid sinuses: Normally developed with mild mucosal thickening. There is sellar sphenoid sinus pne umatization without evidence of dehiscence. No dehiscence of carotid canal. No evidence of optic ner ve dehiscence within the sphenoid sinus. No evidence of [place] cells. Sphenoethmoidal recesses: Clear . Nasal septum: Mildly deviated leftward anteriorly.. Nasal Turbinates: Mild mucosal thickening left greater than right and middle and inferior turbinates. Mastoid air cells & middle ears: The air cells are clear. The middle ears are grossly unremarkable. Modified Soft tissues & Brain: Partially seen without gross abnormality. Globes are intact. Atherosclerosis of the intracranial vasculature. Other: Cribriform plate demonstrates symmetric Keros classification type 2 cribriform plate. No evidence of bony dehiscence of skull base. Lamina papyracea is intact without evidence of remote orbital fracture or orbital prolapse into the e thmoid sinus. IMPRESSION: 1. No significant mucosal sinus disease. 2. The ostiomeatal units, frontonasal and sphenoethmoidal recesses are clear.
== END | disposition home or self-care (01) ==
LOC: RADCTMAIN 15:53
PROVIDERS: ATTEND Otolaryngology
DX: R43.0 Anosmia (principal)
CPT/HCPCS: 70486